=== PATIENT | male | born 1965 | race Caucasian/White ===

== ENCOUNTER 2021-05-19 15:29 | Outpatient (CLI) | payer BC, SELFPAY ==
--- NOTE | ~2021-05-19 | CT_ITS ---
EXAMINATION: CT lung screening DATE: 05/19/2021 15:48 INDICATION: Nicotine dependence. TECHNIQUE: Computed tomography (CT) of the chest was performed without intravenous contrast. The dose -length product was 265.30 mGy-cm. Automated exposure control and iterative reconstruction technique were employed. COMPARISON: Chest x-ray dated 06/18/2005. FINDINGS: Mildly enlarged right paratracheal lymph node. Additional smaller nonenlarged mediastinal l ymph nodes. There is an enlarged AP window lymph node measuring 1.3 cm. No significant pleural or per icardial effusion. Fatty infiltration of the liver. Mild atherosclerosis of the aorta and coronary ar teries. Heart size normal. There is nonsolid consolidation along the minor fissure as well as the lef t major fissure. There is lingular atelectasis/scarring. There are emphysematous changes. IMPRESSION: 1. Lung-RADS category 3: Probably benign. Further evaluation is recommended with noncontrast low-dose chest CT in 6 months. 2: Mild mediastinal lymphadenopathy, likely reactive. Reviewed, dictated and finalized at location A. IMPRESSION: 1. Lung-RADS category 3: Probably benign. Further evaluation is recommended wit h noncontrast low-dose chest CT in 6 months. 2: Mild mediastinal lymphadenopathy, likely reactive.
== END 2021-05-19 15:30 | disposition home or self-care (01) ==
LOC: ANHIMG 15:34
PROVIDERS: PCP Family Medicine; Visit Provider Physician Assistant Medical
DX: Z12.2 Encounter for screening for malignant neoplasm of respiratory organs (principal); F17.210 Nicotine dependence, cigarettes, uncomplicated
CPT/HCPCS: 71271

== ENCOUNTER 2022-05-21 16:37 | Outpatient (CLI) | payer BC, SELFPAY ==
--- NOTE | ~2022-05-21 | CT_ITS ---
EXAMINATION: CT lung screening DATE: 05/21/2022 17:06 INDICATION: Abnormal initial low dose CT TECHNIQUE: Computed tomography (CT) of the chest was performed without intravenous contrast. Addition al 3D reconstructions utilizing coronal maximum intensity projection (MIP) were performed. Automated exposure control and iterative reconstruction technique were employed. The dose-length product was 22 1.25 mGy-cm. COMPARISON: 05/19/2021 FINDINGS: Mild upper lobe and paraseptal predominant emphysema. Unchanged linear bands of discoid atelectasis/s carring in the right middle lobe and the lingula. New 2 mm left lower lobe nodule near the apex of th e diaphragm on series 4, image 106. Unchanged tiny calcified subpleural left lower lobe nodule consis tent with old granulomatous disease. Heart size is normal. Atherosclerotic coronary artery calcificat ion. No pericardial or pleural effusion. Thoracic aorta is normal in caliber. Partially visualized 6. 7 x 4.5 cm right supraclavicular mass. No other pathologically enlarged thoracic lymphadenopathy. Int erval improvement in the prior diffuse hepatic steatosis. There are few scattered hypodense hepatic l esions is likely either hepatic cysts or hemangiomas. The largest measuring up to 1.4 cm. There are a lso low-attenuation cysts at the upper poles of both kidneys, the larger on the right measuring 1.9 c m. No pathologically enlarged lymphadenopathy in the visualized upper abdomen. Mild to moderate thora cic spondylosis. IMPRESSION: 1. Expected 7 x 4.5 cm right supraclavicular mass concerning for either lymphoma or metastatic diseas e. Recommend ultrasound-guided core needle biopsy. Dr. Johnson discussed these findings with Dr. Vadim glez at 10:20 AM. 2. Lung-RADS category 2: Benign appearance or behavior. Continue annual screening with noncontrast lo w-dose chest CT in 12 months. Reviewed, dictated and finalized at location A. IMPRESSION: 1. Expected 7 x 4.5 cm right supraclavicular mass concerning for either lymphom a or metastatic disease. Recommend ultrasound-guided core needle biopsy. Dr. Fr farah discussed these findings with Dr. Gonzalez at 10:20 AM. 2. Lung-RADS category 2: Benign appearance or behavior. Continue annual screeni ng with noncontrast low-dose chest CT in 12 months.
== END 2022-05-21 16:38 | disposition home or self-care (01) ==
LOC: ANHIMG 16:41
PROVIDERS: PCP Emergency Medicine; Visit Provider Emergency Medicine
DX: Z12.2 Encounter for screening for malignant neoplasm of respiratory organs (principal); F17.210 Nicotine dependence, cigarettes, uncomplicated
CPT/HCPCS: 71271

== ENCOUNTER 2022-05-31 12:46 | Outpatient (CLI) | payer BC, SELFPAY ==
--- NOTE | ~2022-05-31 | US_ITS ---
EXAMINATION: US biopsy lymph node DATE: 05/31/2022 13:50 INDICATION: Right cervical lymphadenopathy. TECHNIQUE: The procedure including the risks, benefits, and alternatives was discussed with the patie nt. Risks discussed included bleeding and infection. The patient understood the risks and agreed to p roceed. The skin overlying the right neck was prepped and draped in usual sterile fashion. Anestheti c was administered with 1% lidocaine subcutaneously. The right cervical lymph node is predominantly n ecrotic. An 18-gauge spinal needle was inserted into the necrotic lymph node under ultrasound guidanc e. 80 mL of opaque, red fluid was aspirated and discarded. An 18 gauge core biopsy needle was then us ed to obtain 6 core biopsy specimens under continuous sonographic guidance. The entry site was cleane d and dressed. There were no immediate complications. FINDINGS: Ultrasound images demonstrate the needle in a 6.8 x 3.7 cm mixed solid and cystic mass in r ight neck that is likely an enlarged lymph node. IMPRESSION: 1. Ultrasound-guided core needle biopsy of an enlarged right neck lymph node. Reviewed, dictated and finalized at location A.
== END 2022-05-31 12:47 | disposition home or self-care (01) ==
PROVIDERS: PCP Emergency Medicine; Visit Provider Emergency Medicine
DX: R22.1 Localized swelling, mass and lump, neck (principal)
CPT/HCPCS: 38505; 76942; 88305; 88342

== ENCOUNTER 2022-06-15 15:50 | Outpatient (CLI) | payer BC, SELFPAY ==
--- NOTE | ~2022-06-15 | US_ITS ---
US soft tissue head and neck INDICATION: Thyroid cancer. TECHNIQUE: Real-time sonographic images of the thyroid gland were obtained. COMPARISON: No prior studies for comparison. FINDINGS: The right thyroid lobe measures 5.8 x 2.8 cm. In the right lobe there is a complex heteroge neous solid mass which is hypoechoic, taller than wide, irregular margins without internal echogenic foci. This mass measures 2.2 x 2.1 x 1.7 cm. In the left neck there is a complex partially cystic mas s measuring 7.8 x 7.6 x 3.5 cm with heterogeneous internal echogenic soft tissue. No significant inte rnal vascularity.. IMPRESSION: 1. Abnormal hypoechoic 2.2 cm right thyroid mass, TR 5. Recommend ultrasound guided biopsy. 2: Complex partially cystic right neck mass measuring 7.8 cm greatest dimension. Recommend correlati on with contrast-enhanced CT neck. Reviewed, dictated and finalized at location A. IMPRESSION: 1. Abnormal hypoechoic 2.2 cm right thyroid mass, TR 5. Recommend ultrasound g uided biopsy. 2: Complex partially cystic right neck mass measuring 7.8 cm greatest dimensio n. Recommend correlation with contrast-enhanced CT neck.
== END 2022-06-15 15:51 | disposition home or self-care (01) ==
LOC: ANHIMG 15:52
PROVIDERS: PCP Emergency Medicine; Visit Provider Internal Medicine Hematology & Oncology
DX: C73 Malignant neoplasm of thyroid gland (principal)
CPT/HCPCS: 76536

== ENCOUNTER 2022-08-15 09:19 | Outpatient (CLI) | payer BC, SELFPAY ==
[2022-08-15 09:32] LABS: Basophils Absolute Auto 0.1 K/mm3 (0.0-0.1); Basophils Percent Auto 0.8 % (0.2-1.2); Eosinophils Absolute Auto 0.3 K/mm3 (0-0.3); Hematocrit 37.2 % (42.0-52.0); Hemoglobin 12.1 g/dL (14.0-18.0); Immature Granulocyte Absolute 0.03 K/mm3 (0.00-0.031); Immature Granulocyte Percent A 0.5 % (0-0.5); Lymphocytes Percent Auto 19.4 % (18.3-44.2); Mean Corpuscular HGB Conc 32.5 g/dl (32-36); Mean Corpuscular Hemoglobin 30.9 pg (26-34); Mean Corpuscular Volume 95.1 fl (80-100); Mean Platelet Volume 9.3 fl (7.4-10.4); Monocytes Absolute Auto 0.8 K/mm3 (0.1-0.6); Monocytes Percent Auto 12.8 % (2.6-8.5); Neutrophils Absolute Auto 3.8 K/mm3 (1.3-6.7); Neutrophils Percent Auto 61.5 % (45.5-73.1); Platelet Count Result 177 k/mm3 (150-375); Red Blood Count 3.91 M/mm3 (4.6-6.20); Red Cell Distribution Width 13.6 % (11.5-14.5); White Blood Count 6.2 K/mm3 (4.5-10.0)
[2022-08-15 11:41] LABS: Alanine Aminotransferase 56 U/L (6-50); Albumin Level 4.2 g/dL (3.5-5.1); Alkaline Phosphatase 93 U/L (38-126); Anion Gap 3 mmol/L (8-16); Aspartate Amino Transferase 35 U/L (17-59); Bilirubin,Total 0.3 mg/dL (0.2-1.3); Blood Urea Nitrogen 13 mg/dL (9-20); Calcium 8.7 mg/dL (8.4-10.2); Carbon Dioxide 30 mmol/L (22-30); Chloride 102 mmol/L (98-107); Estimated Glomerular Filt Rate > 60; Glucose 108 mg/dL (65-110); Potassium 4.4 mmol/L (3.4-5.0); Sodium 135 mmol/L (137-145)
[2022-08-18 04:09] LABS: Thyroglobulin 0.4 ng/mL (2.8-40.9); Thyroglobulin Antibodies <1 IU/mL (<=1)
== END 2022-08-15 09:20 | disposition home or self-care (01) ==
LOC: ANHLAB 09:20
PROVIDERS: PCP Emergency Medicine; Visit Provider Internal Medicine Hematology & Oncology
DX: C73 Malignant neoplasm of thyroid gland (principal)
CPT/HCPCS: 36415; 80053; 84432; 84443; 85025; 86800

== ENCOUNTER 2022-09-21 11:48 | Outpatient (CLI) | payer BC, SELFPAY ==
[2022-09-21 18:16] LABS: Thyroid Stimulating Hormone 0.373 uIU/mL (0.465-4.680)
== END 2022-09-21 11:49 | disposition home or self-care (01) ==
LOC: ANHGOSHLAB 11:49
PROVIDERS: PCP Emergency Medicine; Visit Provider Emergency Medicine
DX: E03.9 Hypothyroidism, unspecified (principal)
CPT/HCPCS: 36415; 84439; 84443

== ENCOUNTER 2023-02-01 09:46 | Emergency (ER) | payer BC, SELFPAY ==
[2023-02-01] VITALS (9 sets, daily range): BP systolic 134–167; BP diastolic 88–122; PULSE 66–71; RESP 8–23; TEMP 36.6; O2SAT 93–98
--- NOTE | ~2023-02-01 | XR_ITS ---
XR chest 2V 02/01/2023 10:20 Indication: Shortness of breath Procedure: 2 view chest Comparison: 06/18/2005 Findings: Heart size normal. There are discoid infiltrates of the right lower lung, most likely atele ctasis/scarring. No pleural effusion or pneumothorax. No acute osseous abnormality. Impression: 1: Discoid infiltrates of the right lower lung, most likely atelectasis or scarring. Reviewed, dictated and finalized at location B. Impression: 1: Discoid infiltrates of the right lower lung, most likely atelectasis or scar ring.
--- NOTE | 2023-02-01 09:56 | ECG_ITS ---
Measurements Intervals [place] Rate: 61 P: 55 AR: 198 QRS: 57 QRSD: 94 T: 59 QT: 389 QTc: 392 Interpretive Statements SINUS RHYTHM BASELINE ARTIFACT- I, II, AVR NORMAL ECG NO PREVIOUS ECG AVAILABLE FOR COMPARISON Electronically Signed On 02-01-2023 12:28:28 CDT by Lemuel Ibanez D.O.
[2023-02-01 10:50] LABS: Basophils Absolute Auto 0.1 K/mm3 (0.0-0.1); Basophils Percent Auto 1.2 % (0.2-1.2); Eosinophils Absolute Auto 0.2 K/mm3 (0-0.3); Hematocrit 48.2 % (42.0-52.0); Hemoglobin 14.8 g/dL (14.0-18.0); Immature Granulocyte Absolute 0.02 K/mm3 (0.00-0.031); Immature Granulocyte Percent A 0.3 % (0-0.5); Lymphocytes Percent Auto 16.1 % (18.3-44.2); Mean Corpuscular HGB Conc 30.7 g/dl (32-36); Mean Corpuscular Hemoglobin 27.8 pg (26-34); Mean Corpuscular Volume 90.4 fl (80-100); Monocytes Absolute Auto 0.7 K/mm3 (0.1-0.6); Monocytes Percent Auto 9.2 % (2.6-8.5); Neutrophils Absolute Auto 5.3 K/mm3 (1.3-6.7); Neutrophils Percent Auto 71.2 % (45.5-73.1); Platelet Count Result 167 k/mm3 (150-375); Red Blood Count 5.33 M/mm3 (4.6-6.20); Red Cell Distribution Width 14.8 % (11.5-14.5); White Blood Count 7.5 K/mm3 (4.5-10.0)
[2023-02-01 11:06] LABS: Alanine Aminotransferase 27 U/L (6-50); Albumin Level 4.4 g/dL (3.5-5.1); Alkaline Phosphatase 117 U/L (38-126); Anion Gap 4 mmol/L (8-16); Aspartate Amino Transferase 32 U/L (17-59); Bilirubin,Total 0.6 mg/dL (0.2-1.3); Blood Urea Nitrogen 9 mg/dL (9-20); Calcium 8.8 mg/dL (8.4-10.2); Carbon Dioxide 31 mmol/L (22-30); Chloride 102 mmol/L (98-107); Estimated CRCL calculation 91 ml/min; Estimated Glomerular Filt Rate > 60; Glucose 106 mg/dL (65-110); Potassium 4.7 mmol/L (3.4-5.0); Sodium 137 mmol/L (137-145)
[2023-02-01 11:17] LABS: NT Pro B Type Natriuretic Pept 68 pg/mL (19.9-100); Troponin I < 0.012 ng/mL (0.000-0.034)
--- NOTE | 2023-02-01 11:17 | PC.NURSE ---
Pt ambulates into room c/o low SPO2 levels at his PCP's today. Pt states he has felt SOB off and on since Jul after having his thyroid removed. Pt states he feels like his levothyroxine dose is off. Pt denies feeling SOB at this moment. PT's SPO2 on room air is 94 at this time. Denies any pain at this time. States on the 18 of July two days after having his thyroid removed he had a PE and NV here at this facility.
--- NOTE | 2023-02-01 13:25 | ED.GENADULT ---
HPI - General Adult General Chief complaint: Recheck/Abnormal Lab/Rx Stated complaint: sob Time Seen by Provider: 02/01/23 11:17 History of Present Illness HPI narrative: Patient is a 57-year-old male who presents ER due to concern for low O2 saturation study. Patient reports he was at his primary care doctor's office for his annual exam. He performed a walking O2 study where his pulse oximeter reading was at 92% so he was referred to the ER. He has no chest pain or chest pressure. He has no symptoms of dyspnea. No runny nose or sore throat or productive cough. He does have history of tobacco abuse. Related Data Home Medications Medication Instructions Recorded Confirmed albuterol sulfate 90 mcg/actuation 1 puff inhalation Q6-8H 08/24/22 02/01/23 aerosol inhaler atorvastatin 40 mg tablet 40 mg PO DAILY 08/24/22 02/01/23 ibuprofen 400 mg tablet 800 mg PO Q6-8H 08/24/22 02/01/23 rivaroxaban 10 mg tablet (Xarelto) 10 mg PO DAILY 08/24/22 02/01/23 Allergies Allergy/AdvReac Type Severity Reaction Status Date / Time iodine Allergy Unknown hives Verified 02/01/23 11:21 Contrast Media Allergy Unknown SEVERE Uncoded 02/01/23 08:38 HIVES, ITCHING Review of Systems Review of Systems: All systems reviewed & are unremarkable except as noted in HPI and below Constitutional: Constitutional: Denies chills, Denies fatigue and Denies fever(s) ENT: Denies nasal congestion and Denies sore throat Cardiovascular: Cardiovascular: Denies chest pain, Denies rapid heart rate and Denies radiating jaw, neck or arm pain Respiratory: Respiratory: Denies cough, Denies dyspnea and Denies wheezing [facility] Past Medical History Medical History Acquired hypothyroidism S/p thyrodectomy in July 2022 Adjustment disorder with depressed mood Essential (primary) hypertension History of DVT (deep vein thrombosis) History of pulmonary embolism Lipoprotein deficiency Mixed hyperlipidemia Papillary thyroid carcinoma Personal history of tobacco use Surgical History Surgical History History of laryngoscopy 06/30 [facility] Family History Family History Mother Diabetes mellitus Hypertension Lung cancer Father Hypertension Grandparent Diabetes mellitus Grandparent Diabetes mellitus Hypertension Social History Social History Social History: Caffeine-soda Smoking packs per day: 2 Smoking cigarettes per day: 40.0 Years smoked: 44 Smoking pack-years: 88.00 Smoking status: Former smoker Alcohol intake: current Drinks per week: 30 Alcohol use details: Beer Substance use type: does not use Lack of Transportation: No Lack of Food: Never True Current Housing: I Have Housing Concerned About Future Housing: No Difficulty Paying Gas/Electric Bills: No Difficulty Paying for Meds: No Currently Unemployed: No Education: Trade/Vocational Certificate Difficulty w/ Childcare or Family Care: No Occupation/Education: occupation Gender identity (if verbalized by the patient): Male Exam Narrative: GENERAL: Well-appearing, well-nourished, and in no acute distress. HEAD: Normocephalic, atraumatic. ENT: Mucous membranes moist. NECK: Supple. CHEST: Clear to auscultation. No respiratory distress. HEART: Regular rate and rhythm. Normal peripheral pulses. ABDOMEN: Soft, nontender, nondistended. EXTREMITIES: Normal range of motion. +2No edema. SKIN: Warm, dry, no rash. NEURO: Alert and oriented x3. PSYCH: Normal mood and affect. Course Course Emergency Course: Patient resting comfortably. No complaints. Patient ambulatory with pulse oximeter reading no lower than 92% on room air. Patient is free of symptoms when walking. Discharge home. Vital Signs Vital signs: Vital Signs Temperature 97.8 F 02/01/23 09:4
== END 2023-02-01 13:38 | disposition home or self-care (01) ==
PROVIDERS: Emergency Provider Emergency Medicine; PCP Emergency Medicine
DX: Z03.89 Encounter for observation for other suspected diseases and conditions ruled out (principal); I10 Essential (primary) hypertension; E78.2 Mixed hyperlipidemia; E89.0 Postprocedural hypothyroidism; Z86.718 Personal history of other venous thrombosis and embolism; Z86.711 Personal history of pulmonary embolism; Z85.850 Personal history of malignant neoplasm of thyroid; Z87.891 Personal history of nicotine dependence; Z79.01 Long term (current) use of anticoagulants
CPT/HCPCS: 36415; 71046; 80053; 83880; 84484; 85025; 93005; 99284

== ENCOUNTER 2023-02-08 10:21 | Outpatient (CLI) | payer BC, SELFPAY ==
[2023-02-08 18:34] LABS: D Dimer 0.93 ug/mL (<0.48)
[2023-02-08 18:59] LABS: Thyroid Stimulating Hormone 0.074 uIU/mL (0.465-4.680)
== END 2023-02-08 10:22 | disposition home or self-care (01) ==
PROVIDERS: PCP Emergency Medicine; Visit Provider Nurse Practitioner Family
DX: C73 Malignant neoplasm of thyroid gland (principal); E03.9 Hypothyroidism, unspecified; Z86.711 Personal history of pulmonary embolism; Z86.718 Personal history of other venous thrombosis and embolism
CPT/HCPCS: 36415; 84443; 85380

== ENCOUNTER 2023-11-26 03:15 | Emergency (ER) | payer BC, SELFPAY ==
--- NOTE | ~2023-11-26 | XR_ITS ---
Right Knee Technique: AP, lateral, and oblique views were obtained. Clinical History: Pain Findings: No fracture or dislocation is seen. Osseous alignment is anatomic. Joint spaces are preserv ed without degenerative or erosive change. Soft tissues are unremarkable. No joint effusion is seen. Impression: Unremarkable right knee radiographs. Reviewed, dictated and finalized at location . Impression: Unremarkable right knee radiographs.
[2023-11-26 03:17] VITALS: BP 139/68; PULSE 80; RESP 16; TEMP 36.7; O2SAT 96
--- NOTE | 2023-11-26 03:45 | ED.GENADULT ---
HPI - General Adult General Chief complaint: Extremity Problem,Nontraumatic Stated complaint: right leg tender and swollen Time Seen by Provider: 11/26/23 03:32 History of Present Illness HPI narrative: Patient 58-year-old gentleman who presents emergency department with chief complaint of possible DVT the right lower extremity. The patient reports that he has prior history of clots is on an anticoagulant but had some issues with getting his medications and has been off of it for the last week. The patient reports that he started having swelling what appeared to be a large vein present around his low right knee. Patient reports no chest pain denies shortness of breath. Related Data Home Medications Medication Instructions Recorded Confirmed albuterol sulfate 90 mcg/actuation 1 puff inhalation Q6-8H 08/24/22 02/08/23 aerosol inhaler atorvastatin 40 mg tablet 40 mg PO DAILY 08/24/22 02/08/23 Allergies Allergy/AdvReac Type Severity Reaction Status Date / Time iodine Allergy Unknown hives Verified 02/08/23 09:27 Contrast Media Allergy Unknown SEVERE Uncoded 02/08/23 09:27 HIVES, ITCHING Review of Systems Review of Systems: A 10 system review of systems was completed on the patient and is negative except for what is stated in the HPI. Nursing and ancillary documentation was reviewed. [facility] Past Medical History Medical History Acquired hypothyroidism S/p thyrodectomy in July 2022 Adjustment disorder with depressed mood Essential (primary) hypertension History of DVT (deep vein thrombosis) History of pulmonary embolism Lipoprotein deficiency Mixed hyperlipidemia Papillary thyroid carcinoma Personal history of tobacco use Surgical History Surgical History History of laryngoscopy 06/30 [facility] Family History Family History Mother Diabetes mellitus Hypertension Lung cancer Father Hypertension Grandparent Diabetes mellitus Grandparent Diabetes mellitus Hypertension Social History Social History Social History: Caffeine-soda Smoking packs per day: 2 Smoking cigarettes per day: 40.0 Years smoked: 44 Smoking pack-years: 88.00 Smoking status: Former smoker Alcohol intake: current Drinks per week: 30 Alcohol use details: Beer Substance use type: does not use Lack of Transportation: No Lack of Food: Never True Current Housing: I Have Housing Concerned About Future Housing: No Difficulty Paying Gas/Electric Bills: No Difficulty Paying for Meds: No Currently Unemployed: No Education: Trade/Vocational Certificate Difficulty w/ Childcare or Family Care: No Occupation/Education: occupation Gender identity (if verbalized by the patient): Male Exam Narrative: GENERAL: Well-appearing, well-nourished, and in no acute distress. HEAD: Normocephalic, atraumatic. EYES: PERRLA and EOMI. ENT: Nares clear, no rhinorrhea or epistaxis. Mucous membranes moist. NECK: Supple. CHEST: Clear to auscultation. No respiratory distress. HEART: Regular rate and rhythm. No murmur heard. Normal peripheral pulses. ABDOMEN: Soft, nontender, nondistended, normal active bowel sounds. EXTREMITIES: Normal range of motion. No edema. There is tenderness present on the left medial aspect of the right knee SKIN: Warm, dry, no rash. NEURO: No focal deficits. Alert and oriented x3. PSYCH: Normal mood and affect. Course Vital Signs Vital signs: Vital Signs Temperature 36.7 C 11/26/23 03:17 Pulse Rate 80 11/26/23 03:17 Respiratory Rate 16 11/26/23 03:17 Blood Pressure 139/68 11/26/23 03:17 Pulse Oximetry 96 11/26/23 03:17 Oxygen Delivery Room Air 11/26/23 03:17 Temperature 36.7 C 11/26/23 03:17 Pulse Rate 80 11/26/23 03:17 Respiratory Rat
[2023-11-26 04:17] LABS: Basophils Absolute Auto 0.1 K/mm3 (0.0-0.1); Basophils Percent Auto 1.3 % (0.2-1.2); Eosinophils Absolute Auto 0.2 K/mm3 (0-0.3); Eosinophils Percent Auto 2.5 % (0-4.4); Hemoglobin 12.5 g/dL (14.0-18.0); Immature Granulocyte Absolute 0.02 K/mm3 (0.00-0.031); Immature Granulocyte Percent A 0.2 % (0-0.5); Lymphocytes Absolute Auto 1.25 K/mm3 (0.9-3.2); Lymphocytes Percent Auto 15.3 % (18.3-44.2); Mean Corpuscular HGB Conc 30.5 g/dl (32-36); Mean Corpuscular Hemoglobin 27.5 pg (26-34); Mean Corpuscular Volume 90.1 fl (80-100); Mean Platelet Volume 10.6 fl (7.4-10.4); Monocytes Absolute Auto 1.1 K/mm3 (0.1-0.6); Monocytes Percent Auto 13.6 % (2.6-8.5); Neutrophils Absolute Auto 5.5 K/mm3 (1.3-6.7); Neutrophils Percent Auto 67.1 % (45.5-73.1); Platelet Count Result 199 k/mm3 (150-375); Red Blood Count 4.55 M/mm3 (4.6-6.20); Red Cell Distribution Width 14.4 % (11.5-14.5); White Blood Count 8.2 K/mm3 (4.5-10.0)
[2023-11-26 04:25] LABS: Anion Gap 5 mmol/L (8-16); Blood Urea Nitrogen 17 mg/dL (9-20); Calcium 8.8 mg/dL (8.4-10.2); Carbon Dioxide 27 mmol/L (22-30); Chloride 108 mmol/L (98-107); Estimated CRCL calculation 82 ml/min; Estimated Glomerular Filt Rate > 60; Glucose 120 mg/dL (65-110); Potassium 4.4 mmol/L (3.4-5.0); Sodium 140 mmol/L (137-145)
[2023-11-26 04:37] LABS: Prothrombin Time 13.7 Seconds (11.1-14.7)
[2023-11-26 04:38] LABS: Partial Thromboplastin Time 28.5 Seconds (22.3-36.8)
[2023-11-26] MEDS: ENOXAPARIN 100 MG/ML SYRINGE SUB-Q (04:40)
[2023-11-26 04:47] VITALS: BP 148/82; PULSE 91; RESP 16; O2SAT 97
== END 2023-11-26 04:47 | disposition home or self-care (01) ==
PROVIDERS: Emergency Provider Emergency Medicine; PCP Emergency Medicine
DX: M79.604 Pain in right leg (principal); T45.516A Underdosing of anticoagulants, initial encounter; Z91.138 Patient's unintentional underdosing of medication regimen for other reason; I10 Essential (primary) hypertension; E89.0 Postprocedural hypothyroidism; E78.2 Mixed hyperlipidemia; E78.6 Lipoprotein deficiency; Z85.850 Personal history of malignant neoplasm of thyroid; Z86.718 Personal history of other venous thrombosis and embolism; Z86.711 Personal history of pulmonary embolism; Z87.891 Personal history of nicotine dependence
CPT/HCPCS: 36415; 73562; 80048; 85025; 85610; 85730; 93971; 96372; 99283; J1650

== ENCOUNTER 2023-11-26 07:19 | Outpatient (CLI) | payer BC, SELFPAY ==
--- NOTE | ~2023-11-26 | US_ITS ---
EXAMINATION: US venous doppler LE RT DATE: 11/26/2023 08:24 INDICATION: Right lower limb pain TECHNIQUE: Grayscale ultrasound images without and with compression and Doppler ultrasound images of the right lower extremity veins were obtained. COMPARISON: None. FINDINGS: There is nonocclusive thrombus within the partially compressible right popliteal vein. The visualized portions of right common femoral vein, profunda (deep) femoral vein, femoral vein, posterior tibial veins, peroneal veins, gastrocnemius vein and greater saphenous vein outflow are patent. There is a n oncompressible thrombosed superficial varicose vein at the medial right knee. Per notation of the son nikapher the varicose vein arises from the greater saphenous vein real-time imaging which is not prov ided. IMPRESSION: 1. Nonocclusive deep venous necrosis at the right popliteal vein. 2. Thrombosed superficial varicose vein at the medial right knee. Reviewed, dictated and finalized at location A.
== END 2023-11-26 07:20 | disposition home or self-care (01) ==
PROVIDERS: PCP Emergency Medicine; Visit Provider Emergency Medicine
DX: M79.89 Other specified soft tissue disorders (principal); I86.8 Varicose veins of other specified sites
CPT/HCPCS: 93971

== ENCOUNTER 2023-11-26 09:29 | Emergency (ER) | payer BC, SELFPAY ==
[2023-11-26 12:01] VITALS: BP 136/80; PULSE 71; RESP 16; TEMP 36.8; O2SAT 98
--- NOTE | 2023-11-26 12:06 | ED.EXTPRO ---
HPI - Extremity Problem General Chief complaint: Extremity Problem,Nontraumatic Stated complaint: DVT R LEG Time Seen by Provider: 11/26/23 11:28 Source: patient and old records reviewed Mode of arrival: ambulatory Limitations: no limitations History of Present Illness HPI Narrative: Letha is a 58-year-old male who presents the ED with report of DVT in his right lower extremity. Patient reports a hx of previous DVT in LLE/PE after thyroid surgery last year. He has been on Xarelto since then, but states had an issue with the pharmacy and had been off of his xarelto for the past 1 week. He began discomfort in his right medial knee last night. He was seen in the ED last night and scheduled for outpatient venous Doppler ultrasound this morning, which was positive for a nonocclusive DVT in his right popliteal vein. He then prompted to the ED. Patient denies numbness or tingling. Denies any recent surgery or long distance travel. Denies chest pain or shortness of breath. Denies palpitations. Related Data Home Medications Medication Instructions Recorded Confirmed albuterol sulfate 90 mcg/actuation 1 puff inhalation Q6-8H 08/24/22 02/08/23 aerosol inhaler atorvastatin 40 mg tablet 40 mg PO DAILY 08/24/22 02/08/23 Allergies Allergy/AdvReac Type Severity Reaction Status Date / Time iodine Allergy Unknown hives Verified 11/26/23 11:55 Contrast Media Allergy Unknown SEVERE Uncoded 02/08/23 09:27 HIVES, ITCHING Review of Systems Review of Systems: CONSTITUTIONAL: Denies fever, chills, or sweats. CARDIOVASCULAR: Denies chest pain, palpitations, or edema. RESPIRATORY: Denies cough or dyspnea. GASTROINTESTINAL: Denies abdominal pain, nausea, vomiting. MUSCULOSKELETAL: see HPI. NEUROLOGIC: Denies headache, dizziness, numbness, or weakness. All systems reviewed & are unremarkable except as noted in HPI and below PMFSH Past Medical History Medical History Acquired hypothyroidism S/p thyrodectomy in July 2022 Adjustment disorder with depressed mood Essential (primary) hypertension History of DVT (deep vein thrombosis) History of pulmonary embolism Lipoprotein deficiency Mixed hyperlipidemia Papillary thyroid carcinoma Personal history of tobacco use Surgical History Surgical History History of laryngoscopy 06/30 [facility] Family History Family History Mother Diabetes mellitus Hypertension Lung cancer Father Hypertension Grandparent Diabetes mellitus Grandparent Diabetes mellitus Hypertension Social History Social History Social History: Caffeine-soda Smoking packs per day: 2 Smoking cigarettes per day: 40.0 Years smoked: 44 Smoking pack-years: 88.00 Smoking status: Former smoker Alcohol intake: current Drinks per week: 30 Alcohol use details: Beer Substance use type: does not use Lack of Transportation: No Lack of Food: Never True Current Housing: I Have Housing Concerned About Future Housing: No Difficulty Paying Gas/Electric Bills: No Difficulty Paying for Meds: No Currently Unemployed: No Education: Trade/Vocational Certificate Difficulty w/ Childcare or Family Care: No Occupation/Education: occupation Gender identity (if verbalized by the patient): Male Exam Narrative: GENERAL: Appears older than stated age, obese with BMI of 30.9, non-toxic, in no acute distress. HEAD: Normocephalic, atraumatic. RESPIRATORY: Airway patent, respirations nonlabored. Clear to auscultation bilaterally, no rales, rhonchi, wheezing. No focal lung sounds. CARDIOVASCULAR: Regular rate and rhythm without murmurs, rubs, or gallops. Pedal pulses easily palpable MUSCULOSKELETAL: Moves all extremities. No gross deformities. Mildly tortuous varicose vein to right distal thigh /m
[2023-11-26 13:03] VITALS: BP 142/86; PULSE 92; RESP 16; O2SAT 98
== END 2023-11-26 13:04 | disposition home or self-care (01) ==
PROVIDERS: Emergency Provider Physician Assistant; PCP Emergency Medicine
DX: I82.431 Acute embolism and thrombosis of right popliteal vein (principal); T45.516A Underdosing of anticoagulants, initial encounter; Z91.138 Patient's unintentional underdosing of medication regimen for other reason; E89.0 Postprocedural hypothyroidism; I10 Essential (primary) hypertension; E78.2 Mixed hyperlipidemia; Z85.850 Personal history of malignant neoplasm of thyroid; Z86.711 Personal history of pulmonary embolism; Z87.891 Personal history of nicotine dependence; Z79.01 Long term (current) use of anticoagulants
CPT/HCPCS: 99281

== ENCOUNTER 2024-02-07 10:02 | Outpatient (CLI) | payer BC, SELFPAY ==
[2024-02-07 15:55] LABS: Cholesterol 157 mg/dL (0-200); HDL Direct 37 mg/dL; Triglycerides 81 mg/dL (<150)
[2024-02-07 16:31] LABS: Hemoglobin A1C 5.8 % (<5.7)
[2024-02-07 16:57] LABS: Free T4 Free Thyroxine 1.33 ng/mL (0.78-2.19)
[2024-02-07 17:19] LABS: LDL Cholesterol Direct 106 mg/dL
[2024-02-07 17:38] LABS: Prostate Specific Antigen 1.5 ng/mL (< OR = 4.0)
== END 2024-02-07 10:03 | disposition home or self-care (01) ==
LOC: ANHGOSHLAB 10:03
PROVIDERS: PCP Emergency Medicine; Visit Provider Emergency Medicine
DX: Z12.5 Encounter for screening for malignant neoplasm of prostate (principal); E03.9 Hypothyroidism, unspecified; E78.2 Mixed hyperlipidemia
CPT/HCPCS: 36415; 80061; 83036; 84153; 84439; 84443; 84480; G0103

== ENCOUNTER 2024-05-27 11:53 | Outpatient (CLI) | payer BC, SELFPAY ==
[2024-05-27 18:49] LABS: Basophils Absolute Auto 0.1 K/mm3 (0.0-0.1); Basophils Percent Auto 1.3 % (0.2-1.2); Eosinophils Absolute Auto 0.2 K/mm3 (0-0.3); Eosinophils Percent Auto 2.8 % (0-4.4); Hematocrit 40.9 % (42.0-52.0); Hemoglobin 11.8 g/dL (14.0-18.0); Immature Granulocyte Absolute 0.03 K/mm3 (0.00-0.031); Immature Granulocyte Percent A 0.4 % (0-0.5); Lymphocytes Percent Auto 15.5 % (18.3-44.2); Mean Corpuscular HGB Conc 28.9 g/dl (32-36); Mean Corpuscular Hemoglobin 24.8 pg (26-34); Mean Corpuscular Volume 85.9 fl (80-100); Mean Platelet Volume 10.7 fl (7.4-10.4); Monocytes Absolute Auto 0.8 K/mm3 (0.1-0.6); Monocytes Percent Auto 10.7 % (2.6-8.5); Neutrophils Absolute Auto 5.4 K/mm3 (1.3-6.7); Neutrophils Percent Auto 69.3 % (45.5-73.1); Platelet Count Result 231 k/mm3 (150-375); Red Blood Count 4.76 M/mm3 (4.6-6.20); Red Cell Distribution Width 15.4 % (11.5-14.5); White Blood Count 7.7 K/mm3 (4.5-10.0)
[2024-05-27 19:21] LABS: Burr Cells 1+; Ovalocytes 1+; Platelet Estimate Adequate (Adequate); Poikilocytosis 1+; Schistocytes None Seen
[2024-05-27 19:42] LABS: Free T4 Free Thyroxine 1.93 ng/mL (0.78-2.19)
[2024-05-27 19:48] LABS: Alanine Aminotransferase 31 U/L (6-50); Albumin Level 4.1 g/dL (3.5-5.1); Alkaline Phosphatase 93 U/L (38-126); Anion Gap 6 mmol/L (4-12); Aspartate Amino Transferase 46 U/L (17-59); Bilirubin,Total 0.5 mg/dL (0.2-1.3); Blood Urea Nitrogen 23 mg/dL (9-20); Calcium 8.9 mg/dL (8.4-10.2); Carbon Dioxide 28 mmol/L (22-30); Chloride 94 mmol/L (98-107); Cholesterol 127 mg/dL (0-200); Estimated Glomerular Filt Rate 41; Glucose 83 mg/dL (65-110); HDL Direct 30 mg/dL; Sodium 128 mmol/L (137-145); Triglycerides 115 mg/dL (<150)
[2024-05-27 19:56] LABS: LDL Cholesterol Direct 68 mg/dL
[2024-05-27 20:15] LABS: Thyroid Stimulating Hormone 0.108 uIU/mL (0.465-4.680); Total Triiodothyronine (T3) 0.98 NG/ML (0.97-1.69)
== END 2024-05-27 11:54 | disposition home or self-care (01) ==
PROVIDERS: PCP Emergency Medicine; Visit Provider Emergency Medicine
DX: E78.2 Mixed hyperlipidemia (principal); R06.02 Shortness of breath; R42 Dizziness and giddiness; E03.9 Hypothyroidism, unspecified
CPT/HCPCS: 36415; 80053; 80061; 84439; 84443; 84480; 85025

== ENCOUNTER 2024-05-28 10:41 | Outpatient (CLI) | payer BC, SELFPAY ==
--- NOTE | ~2024-05-28 | CT_ITS ---
Non-contrast Head CT History: Head injury Technique: Axial non-contrast imaging of the brain was performed. Dose reduction technique was used on this scan by utilizing automated exposure control and iterative reconstruction technique. The dose -length product (DLP) was 645.69 mGy-cm. Findings: There is no evidence of intracranial hemorrhage, mass lesion, or acute infarct. Brain par enchyma appears normal. The ventricles and subarachnoid spaces are normal in size. The calvarium ap pears normal. The visualized paranasal sinuses and mastoid air cells are clear. Impression: No significant abnormality seen. Reviewed, dictated and finalized at location . Impression: No significant abnormality seen.
--- NOTE | ~2024-05-28 | CT_ITS ---
CT Scan of the Chest without Contrast: Clinical Indication: Shortness of breath Technique: Contiguous sections were acquired throughout the chest without intravenous contrast. Dose reduction technique was used on this scan by utilizing automated exposure control and iterative recon struction technique. The dose-length product (DLP) was 473.32 mGy-cm. COMPARISON: 05/21/2022 Findings: There is no evidence of any significant mediastinal, hilar or axillary lymphadenopathy. Coronary eliel ry calcifications are present. There is no evidence of pleural or pericardial effusion. Upper lobe predominant paraseptal emphysema is present. Stable irregular opacity at the peripheral, r ight middle lobe, suggestive of chronic postinflammatory scarring. Images through the upper abdomen reveal no abnormalities. Impression: No suspicious abnormality seen. Stable irregular opacity right middle lobe, likely chronic postinflam matory change or scarring. Upper lobe emphysema, predominantly paraseptal. Reviewed, dictated and finalized at [facility]. Impression: No suspicious abnormality seen. Stable irregular opacity right middle lobe, lik madonna chronic postinflammatory change or scarring. Upper lobe emphysema, predominantly paraseptal.
== END 2024-05-28 10:42 | disposition home or self-care (01) ==
LOC: GOSHIMG 10:41
PROVIDERS: PCP Emergency Medicine; Visit Provider Emergency Medicine
DX: R06.02 Shortness of breath (principal); S09.8XXA Other specified injuries of head, initial encounter; X58.XXXA Exposure to other specified factors, initial encounter; J43.9 Emphysema, unspecified
CPT/HCPCS: 70450; 71250

== ENCOUNTER 2024-06-26 11:06 | Outpatient (CLI) | payer BC, SELFPAY ==
[2024-06-26 18:11] LABS: Albumin Level 3.9 g/dL (3.5-5.1); Anion Gap 8 mmol/L (4-12); Blood Urea Nitrogen 16 mg/dL (9-20); Calcium 8.7 mg/dL (8.4-10.2); Carbon Dioxide 28 mmol/L (22-30); Chloride 100 mmol/L (98-107); Estimated Glomerular Filt Rate > 60; Glucose 154 mg/dL (65-110); Phosphorus 2.8 mg/dL (2.5-4.5); Potassium 4.4 mmol/L (3.4-5.0); Sodium 136 mmol/L (137-145)
== END 2024-06-26 11:07 | disposition home or self-care (01) ==
LOC: ANHGOSHLAB 11:08
PROVIDERS: PCP Emergency Medicine; Visit Provider Internal Medicine Nephrology
DX: E87.1 Hypo-osmolality and hyponatremia (principal); N17.9 Acute kidney failure, unspecified
CPT/HCPCS: 36415; 80069

== ENCOUNTER 2024-09-17 13:37 | Outpatient (CLI) | payer BC, SELFPAY ==
[2024-09-17 20:47] LABS: Albumin Level 3.9 g/dL (3.5-5.1); Anion Gap 4 mmol/L (4-12); Blood Urea Nitrogen 16 mg/dL (9-20); Calcium 8.7 mg/dL (8.4-10.2); Carbon Dioxide 29 mmol/L (22-30); Chloride 101 mmol/L (98-107); Estimated Glomerular Filt Rate > 60; Glucose 87 mg/dL (65-110); Phosphorus 2.9 mg/dL (2.5-4.5); Potassium 4.6 mmol/L (3.4-5.0); Sodium 134 mmol/L (137-145)
== END 2024-09-17 13:38 | disposition home or self-care (01) ==
LOC: ANHGOSHLAB 13:39
PROVIDERS: PCP Emergency Medicine; Visit Provider Internal Medicine Nephrology
DX: E87.1 Hypo-osmolality and hyponatremia (principal); N17.9 Acute kidney failure, unspecified
CPT/HCPCS: 36415; 80069

== ENCOUNTER 2024-12-22 09:20 | Outpatient (CLI) | payer BC, SELFPAY ==
--- NOTE | 2024-12-22 09:30 | EST_ITS ---
Patient Info Name: Benton Trimble Age: 59 years : 1965 Gender: Male Ht: 73 in Wt: 250 lbs BSA: 2.45 m2 Exam Date: 12/22/2024 9:53 AM Exam Location: Echo Lab Patient Status: Outpatient Admit Date: 12/22/2024 Staff Ordering Physician: Marizol Dejesus-Jordan Cash Control Specialist: Grecia Rodriguez RDCS Attending Provider: DR. IBANEZ Referring Physician: Oleg BRAGG; Exercise Technologist: Melinda Bryant RDCS Exercise Physician: Lemuel Ibanez DO Exam Type: CA stress echo Study Info Indications R42 - Dizziness and giddiness Treadmill exercise stress echocardiogram is performed. Summary 1. 1. Negative Baudilio exercise stress test for ischemic ST changes by ECG criteria. However, patient only achieved 73% MPHR for age group which reduces sensitivity of the test. 2. 2. Poor functional capacity, achieving 4.7 METs of workload. 3. 3. Appropriate HR response to exercise. 4. 4. Appropriate HR recovery at 1 minute post exercise. 5. 5. Negative stress echocardiogram for ischemia by wall motion analysis. 6. 6. Patient informed of the above results. Stress Echo Findings Left Ventricle Appropriate increase in LV endocardial thickening with systole. Appropriate augmentation of contractility with systole. No wall motion abnormality. Left Ventricle Normal LV systolic function, no wall motion abnormality. Protocol: Baudilio Stress ECG Details Stage: REST Duration (min): 0 min : 47 sec Speed (mph): 0.0 Grade (%): 0 HR (bpm): 70 SBP (mmHg): 110 DBP (mmHg): 55 METS: --- Stage: REST Duration (min): 27 min : 26 sec Speed (mph): 0.0 Grade (%): 0 HR (bpm): 76 SBP (mmHg): 110 DBP (mmHg): 55 METS: --- Stage: STAGE 1 Duration (min): 1 min : 0 sec Speed (mph): 1.7 Grade (%): 10 HR (bpm): 99 SBP (mmHg): 110 DBP (mmHg): 55 METS: --- Stage: STAGE 1 Duration (min): 2 min : 0 sec Speed (mph): 1.7 Grade (%): 10 HR (bpm): 110 SBP (mmHg): 110 DBP (mmHg): 55 METS: --- Stage: STAGE 1 Duration (min): 3 min : 0 sec Speed (mph): 1.7 Grade (%): 10 HR (bpm): 115 SBP (mmHg): 121 DBP (mmHg): 54 METS: --- Stage: STAGE 2 Duration (min): 0 min : 5 sec Speed (mph): 0.0 Grade (%): 0 HR (bpm): 116 SBP (mmHg): 121 DBP (mmHg): 54 METS: --- Stage: RECOVERY Duration (min): 0 min : 55 sec Speed (mph): 0.0 Grade (%): 0 HR (bpm): 110 SBP (mmHg): 121 DBP (mmHg): 54 METS: --- Stage: RECOVERY Duration (min): 1 min : 55 sec Speed (mph): 0.0 Grade (%): 0 HR (bpm): 107 SBP (mmHg): 149 DBP (mmHg): 38 METS: --- Stage: RECOVERY Duration (min): 2 min : 55 sec Speed (mph): 0.0 Grade (%): 0 HR (bpm): 96 SBP (mmHg): 149 DBP (mmHg): 38 METS: --- Stage: RECOVERY Duration (min): 3 min : 16 sec Speed (mph): 0.0 Grade (%): 0 HR (bpm): 95 SBP (mmHg): 149 DBP (mmHg): 38 METS: --- Rest HR: 76 bpm Peak HR: 116 bpm Rest Sys BP: 110 mmHg Peak Sys BP: 149 mmHg Max Pred HR: 160 bpm % Max Pred HR: 73 % Target HR: 136 bpm Max RPP: 17,284 bpm*mmHg Claudio Score: -1 Termination Reason: Maximal effort/unable to continue Cardiac Symptoms: Shortness of breath Max ST Seg Deviation: -0.80 mm Total Time: 3 min : 5 sec Rest [place] BP: 55 mmHg Peak [place] BP: 38 mmHg Angina Score: None Total METS: 4.7 Resting ECG Sinus rhythm. Stress ECG No ST changes. Arrhythmias None. Report Signatures Stress ECG Echo
--- OUTSIDE RECORDS SUMMARY | 2024-12-22 09:51 | XMS_ITS | Clinical Summary ---
Author Organization [facility] [employer] Address [address] [facility] [place] [address] Care Team Providers Care Water Treatment Plant Operator Name Role Phone Robert Gonzalez Primary Care Provider Unavailabl e Source Comments [facility],non-owned Affiliates and Associated Physician Practices is amultiple site organization consisting of ambulatory clinics and hospital sitesin [place], [place], [place] and [place]. This disclosure is being madepursuant to the Care Everywhere program and may not contain all information available regarding this patient. Last updated 18.[facility] [employer] Allergies Active Allergy Reactions Criticality Noted Date Comments Iodine Urticaria,Unknown High 06/14/2022 Reaction: Hives, I had to have blood removed after contrast when I was 4 Contrast-Iodinated Agents For Ct/Other Urticaria High 06/29/2024 Medications * Be aware that medications may not be up to date on this document. Alwaysverify current medications with the patient. 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 60 tablet 2021 Active Additional Information Patient taking differently: 10 mgOral DAILY WITH FOOD, CP: Albert Biswas III, Indications: Pulmonary Embolism, Reported on 04/02/2023 levothyroxine (Synthroid) 175 MCG tabletIndications:Hypo thyroidism,Malignant Neoplasm of Thyroid Take 1 (one) tablet by mouth daily before breakfast Reasons: Cancer of Thyroid, Underactive Thyroid 90 tablet 3 06/29 Active atorvastatin (Lipitor) 40 MG tabletIndications:Nonf amilial Hypercholesterolemia Take 1 (one) tablet by mouth once daily Reasons: Nonfamilial Hypercholesterolemia 100 tablet 3 09/07 Active Active Problems Problem Noted Date Diagnosed Date Postoperative hypothyroidism 12/24/2022 Elevated cholesterol 12/24/2022 Pulmonary embolism 07/27/2022 Hypertension 07/27/2022 Thyroid cancer 06/22/2022 Cancer Staging:Pathologic stage from 07/16/2022:Stage II(pT2, pN1b, cM0, Age at diagnosis: >= 55 years) - Signed by Momo Grijalva MD on 12/07/2024 Encounters Date Type Department Care Team Description 12/07/2024 9:43 AM CDT - 12/07/2024 11:59 PM CDT Hospital Encounter [facility] CANCER CARE DRAWSTATION [address] [place] [address], 2nd [place] [address] Discharge Disposition: Home or Self Care 12/07/2024 8:20 AM CDT Office Visit [facility] - Hematology/Oncology [address] [place] [phone] Primitivo Silver MD Willis, Maurice, MD Thyroid cancer (Primary Dx); Enlarged prostate 12/07/2024 Travel 12/04/2024 Telephone [facility] - Hematology/Oncology [address] [place] [phone] Momo Grijalva MD Appointment (Spoke with pt. regarding an upcoming appointment on SaturdayDecember 07 at 8:20a.m. with Dr. Grijalva.) 11/09/2024 9:47 AM ADZING AND BORING MACHINE HELPER - 11/09/2024 11:59 PM [facility] Hospital Encounter [facility] PET [address] [place] [address] Primitivo Silver MD Discharge Disposition: Home or Self Care 11/09/2024 9:45 AM ADZING AND BORING MACHINE HELPER - 11/09/2024 9:46 AM [facility] Hospital Encounter [facility] PET [address] [place] [address] Primitivo Silver MD Discharge Disposition: Home or Self Care 11/09/2024 Orders Only [facility] - Endocrinology [address] [place] [phone] Primitivo Silver MD Thyroid cancer; Hypothyroidism, acquired; Hypertension, unspecified type; Elevated cholesterol 11/09/2024 Travel 10/19/2024 Telephone [facility] - Endocrinology [address] [place] [phone] Primitivo Silver MD Follow-up 10/19/2024 Telephone [facility] - Endocrinology [address] [place] [phone] Primitivo Silver MD Medication Issue 10/15/2024 8:30 AM ADZING AND BORING MACHINE HELPER - 10/15/2024 11:59 PM ADZING AND BORING MACHINE HELPER Hospital Encounter [facility] NUCLEAR MEDICINE [address] [place] [phone] Primitivo Silver MD Discharge Disposition: Home or Self Care 10/15/2024 Orders Only [facility] - Endocrinology [address] [place] [phone] Primitivo Silver MD Thyroid cancer ; Hypothyroidism, acquired 10/15/2024 Travel 10/14/2024 9:00 AM ADZING AND BORING MACHINE HELPER - 10/14/2024 11:59 PM ADZING AND BORING MACHINE HELPER Hospital Encounter [facility] NUCLEAR MEDICINE [address] [place] [phone] Primitivo Silver MD Discharge Disposition: Home or Self Care 10/14/2024 Travel 10/08/2024 Travel 10/02/2024 12:20 PM ADZING AND BORING MACHINE HELPER - 10/02/2024 11:59 PM ADZING AND BORING MACHINE HELPER Hospital Encounter [facility] LAB OP DRAW STATION [address] [place] [phone] Discharge Disposition: Home or Self Care 10/02/2024 Travel 09/25/2024 12:25 PM ADZING AND BORING MACHINE HELPER - 09/25/2024 11:59 PM ADZING AND BORING MACHINE HELPER Hospital Encounter [facility] LAB OP DRAW STATION [address] [place] [address] [place] [address] Discharge Disposition: Home or Self Care 09/25/2024 Travel from Last 3 Months Immunizations Immunization Administration Dates Next Due PNEUMOCOCCAL PCV20 CONJ VAC IM 06/27/2022 TDAP, HISTORIC VACCINE 02/19/2022 Zoster Hzv Vacc Recombinant Inj Im 07/27/2022 Family History Medical History Relation Name Comments Diabetes - Type 2 Maternal Grandfather Diabetes - Type 2 Maternal Grandmother Cancer - Lung Maternal Uncle Cancer - Lung Mother Dementia Mother Diabetes - Type 2 Mother Diabetes - Type 2 Paternal Grandmother Thyroid Disease Neg Hx Relation Name Status Comments Maternal Grandfather Maternal Grandmother Maternal Uncle Alive Mother Paternal Grandmother Social History Tobacco Use Types Packs/Day Years Used Date Smoking Tobacco: Former Cigarettes 2 47.3 S tarted: 1977 Smokeless Tobacco: Never Tobacco Cessation:Counseling Given: Not Answered Comments:Quit 07/16/22 Alcohol Use Standard Drinks/Week Comments Yes 30 (1 standard drink = 0.6 oz pure alcohol) 2-3 beers per weekday, 10/day on weekend AUDIT-C Answer Date Recorded Q1: How often do you have a drink containing alc ohol? Monthly or less 07/16/2022 Average Number of Drinks Not on file 022 Frequency of Binge Drinking Not on file 03/2022 PHQ-2 Answer Date Recorded PHQ2 TOTAL SCORE 0 12/24/2022 Sex and Gender Information Value Date Recorded Sex Assigned at Not on file Legal Sex Male 5:22 AM CDT Gender Identity Not on file Sexual Orientation Not on file Last Filed Vital Signs Vital Sign Reading Time Taken Comments Blood Pressure 125/75 12/07/2024 8:53 AM CDT Pulse 94 12/07/2024 8:53 AM CDT Temperature 36.7 C (98.1 F) 12/07/2024 8:53 AM CDT Respiratory Rate 20 12/07/2024 8:53 AM CDT Oxygen Saturation 96% 12/07/2024 8:53 AM CDT Inhaled Oxygen Concentration 50% 07/19/2022 1 :05 AM ADZING AND BORING MACHINE HELPER Weight 112.4 kg (247 lb 12.8 oz) 12/07/2024 8:53 AM CDT Height 182 cm (5' 11.65 ) 12/07/2024 8:53 AM CDT Body Mass Index 33.93 12/07/2024 8:53 AM CDT Plan of Treatment Upcoming Encounters Date Type Department Care Team (Late st Contact Info) Description 12/29/2024 9:00 AM CDT Office Visit [facility] - Endocrinology [address] [facility], [place] [address] Primitivo Silver MD [address] [place] [address] [address] [place] [address] 01/10/2025 10:30 AM CDT Appointment [facility] MRI [address] [place] [phone] Primitivo Silver MD [address] [place] [address] [address] [place] [address] 01/11/2025 10:00 AM CDT Office Visit [facility] - Hematology/Oncology [address] [place] [phone] Momo Grijalva MD [address] [place] [address] Health Maintenance Due Date Last Done Comments COLOGUARD (AGES 45-75) - COLON CA SCREENING 1964 COLON MONITORING 1964 COLONOSCOPY - COLON CA SCREENING 1964 CT COLONOGRAPHY - COLON CA SCREENING 1964 Colorectal Cancer Screening 1964 FIT - COLON CA SCREENING 1964 FLEX SIG - COLON CA SCREENING 1964 HIV SCREENING 1979 LUNG CANCER SCREENING 2014 ZOSTER VACCINE (2 of 2) 09/21/2022 07/27/2022 COVID-19 VACCINE ( season) 2024 DEPRESSION SCREENING 09/09/2024 12/24/2022, 08/28/20 INFLUENZA VACCINE (Season Ended) 2025 SCREENING FOR DIABETES 07/22/2025 , 07/21/2022, 07/21/2022, Additional history exists DTAP/TDAP/TD VACCINES (2 - Td or Tdap) 02/20/2032 02/19/2022 Respiratory Syncytial Virus (RSV) Vaccine Pt: or over 60 yrs (1 - 1-dose 75+ series) 2039 PNEUMOCOCCAL VACCINE 50+ Completed 06/27/2022 HEPATITIS C SCREENING Completed 07/21/2022 HEPATITIS B VACCINE Aged Out No longe r eligible based on patient's age to complete this topic HIB VACCINE Aged Out No longer eligi ble based on patient's age to complete this topic HPV VACCINE Aged Out No longer eligi ble based on patient's age to complete this topic MENINGOCOCCAL (Group B) VACCINE SHARED DECISION-MAKING Aged Out No longer eligible based on patient's age to complete this topic MENINGOCOCCAL GROUPS A/C/Y/W VACCINE Aged Out No longer eligible based on patient's age to complete this topic Medical Devices Implanted Type Area Manager [employer] Device Identifier Shelf Expiration Date Model / Serial / Lot Seal Tisseel Prima 1 Prefil Frz 10ml Implanted:Qty: 1 on 07/18/2022 by Uziel Hernandez MD at [facility] 01/07/2024 [id number] / / [id number] Procedures Procedure Name Priority Date/Time Associated Diagnosis Comments THYROGLOBULIN BY SAMSON RFLXED Routine 12/07/2024 9:53 AM CDT Thyroid cancer (HCC) [facility] BLOOD DRAW Routine 12/07/2024 9:5 3 AM CDT Thyroid cancer (HCC) THYROGLOBULIN REFLEX PROFILE STAT 12/07/2024 9:53 AM CDT Thyroid cancer PSA SERIAL STAT 12/07/2024 9:53 AM CDT Enlarged prostate TSH Routine 12/07/2024 9:53 AM CDT Thyroid cancer Hypothyroidism, acquired [facility] XF Routine 12/07/2024 9:32 AM CDT Thyroid cancer [facility] XT NORMAL BLOOD Routine 9:32 AM CDT Thyroid cancer [facility] XT DNA AND RNA SOLID TUMOR Routine 12/07/2024 9:32 AM CDT Thyroid cancer (HCC) PET CT WHOLE BODY Routine 11/09/2024 11: 25 AM ADZING AND BORING MACHINE HELPER Thyroid cancer Hypothyroidism, acquired GLUCOSE SCREEN - POCT (IP) [facility] STAT 11/09/2024 10:04 AM ADZING AND BORING MACHINE HELPER NM TUMOR LOCAL SPECT CT Routine 10/14/2024 1:54 PM ADZING AND BORING MACHINE HELPER Thyroid cancer Hypothyroidism, acquired NM THYROID WHOLE BODY SCAN Routine 10/14/2024 1:54 PM ADZING AND BORING MACHINE HELPER Thyroid cancer Hypothyroidism, acquired THYROGLOBULIN BY SAMSON RFLXED Routine 10/02/2024 12:44 PM ADZING AND BORING MACHINE HELPER Thyroid cancer Hypothyroidism, acquired TSH Routine 10/02/2024 12:44 PM ADZING AND BORING MACHINE HELPER Thyroid cancer Hypothyroidism, acquired THYROGLOBULIN REFLEX PROFILE Routine 10/02/2024 12:44 PM ADZING AND BORING MACHINE HELPER Thyroid cancer Hypothyroidism, acquired THYROGLOBULIN BY SAMSON RFLXED Routine 09/25/2024 12:38 PM ADZING AND BORING MACHINE HELPER Thyroid cancer Hypothyroidism, acquired TSH Routine 09/25/2024 12:38 PM ADZING AND BORING MACHINE HELPER Thyroid cancer Hypothyroidism, acquired THYROGLOBULIN REFLEX PROFILE Routine 09/25/2024 12:38 PM ADZING AND BORING MACHINE HELPER Thyroid cancer Hypothyroidism, acquired BASIC METABOLIC PANEL (CALCIUM TOTAL) AM Draw 07/22/2022 4:57 AM ADZING AND BORING MACHINE HELPER HEPATITIS C AB SCREEN RFLX NAAT QUANT Routine 07/21/2022 7:19 AM ADZING AND BORING MACHINE HELPER from Last 3 Months or Most Recently Relevant to Health Maintenance Results * [facility] BLOOD DRAW (12/07/2024 9:53 AM CDT) Blood Sent to [facility] 12/08/2024 10:00 AM CDT [facility] Comment:Collection and sendo ut completed. Blood BLOOD SPECIMEN / Unknown Lab Venipuncture / Unknown 12/07/2024 9:53 AM CDT 12/08/2024 9:31 AM CDT Momo Grijalva MD LAB - HEMATOLOGY ORDERABLES Fi nal Result Performing Organization Address [facility]/ZIP Co de Phone Number [facility] [address] [address], [facility] [phone] * THYROGLOBULIN REFLEX PROFILE (12/07/2024 9:53 AM CDT) Only the most recent of3 resultswithin the time period is included. Thyroglobulin Antibody <1.0 0.0 - 0.9 IU/mL 12/08/2024 4:11 PM CDT [facility] ([facility]) Comment: Thyroglobulin Antibody measured by [facility] [place] Methodology It should be noted that the presence of thyroglobulin antibodies may not be pathogenic nor diagnostic, especially at very low levels. The assay oil gas and pipe tester has found that four percent of individuals without evidence of thyroid disease or autoimmunity will have positive TgAb levels up to 4 IU/mL. Blood BLOOD SPECIMEN / Unknown Lab Venipuncture / Unknown 12/07/2024 9:53 AM CDT 12/07/2024 10:02 AM CDT Narrative [facility] ([facility]) - 12/08/2024 4:11 PM CDT Performed at: [address] [place] [address] [address] [place], [place] [id number] Signal Tower Operator: Tommy Flores PhD, Phone: [phone] Momo Grijalva MD LAB - CHEMISTRY ORDERABLES Fin al Result Performing Organization Address City/[facility]/ZIP Co de Phone Number [facility] ([facility]) [address] [place] [address], [facility] * THYROGLOBULIN BY SAMSON RFLXED (12/07/2024 9:53 AM CDT) Only the most recent of3 resultswithin the time period is included. Thyroglobulin by SAMSON 7.5 1.4 - 29.2 ng/mL 12/08/2024 4:11 PM CDT [facility] Comment: According to the National Academy of Clinical Biochemistry, the reference interval for Thyroglobulin (TG) should be related to euthyroid patients and not for patients who underwent thyroidectomy. TG reference intervals for these patients depend on the residual mass of the thyroid tissue left after surgery. Establishing a post-operative baseline is recommended. The assay limit of quantitation is 0.1 ng/mL Thyroglobulin measured by [facility] [place] Immunometric Assay Blood BLOOD SPECIMEN / Unknown Lab Venipuncture / Unknown 12/07/2024 9:53 AM CDT 12/07/2024 10:02 AM CDT Narrative [facility] - 12/08/2024 4:11 PM CDT Performed at: [address] [place], [place] [id number] [place], [place] [id number] Signal Tower Operator: Tommy Flores PhD, Phone: [phone] Momo Grijalva MD LAB - CHEMISTRY ORDERABLES Fin al Result Performing Organization Address City/[facility]/ZIP Co de Phone Number [facility] ([facility]) [address] [place] [address] [[email or web address]] * PSA SERIAL (12/07/2024 9:53 AM CDT) [facility] PSA Total 1.6 <4.0 ng/mL 12/07/2024 10:53 AM CDT [facility] Blood BLOOD SPECIMEN / Unknown Lab Venipuncture / Unknown 12/07/2024 9:53 AM CDT 12/07/2024 10:02 AM CDT Narrative [facility] - 12/07/2024 10:53 AM CDT PSA values will vary depending on the testing procedure used. Results are not comparable across different test methods. [facility] uses the OpenStudy Alinity immunoassay test method. Momo Grijalva MD LAB - CHEMISTRY ORDERABLES Fin al Result Performing Organization Address City/[facility]/ZIP Co de Phone Number [facility] [address] [place] [address], [facility] [phone] * (ABNORMAL) TSH (12/07/2024 9:53 AM CDT) Only the most recent of3 resultswithin the time period is included. TSH 0.137(L) 0.350 - 4.940 uIU/mL 12/07/2024 10:47 AM CDT [facility] Blood BLOOD SPECIMEN / Unknown Lab Venipuncture / Unknown 12/07/2024 9:53 AM CDT 12/07/2024 10:04 AM CDT us Primitivo Silver MD LAB - CHEMISTRY ORDERABLES Final Result [address] [address], [facility] [phone] * [facility] xF: xF+ Liquid Biopsy - 523 Genes (12/07/2024 9:32 AM CDT) Pathologist [facility] Reason for Study To identify mutations relevant to patient's cancer. 12/16/2024 1:06 PM CDT [facility] Genetic Diseases Assessed Cancer 12/16/2024 1:06 PM CDT [facility] Description of Ranges of DNA Sequences Examined 523 gene liquid biopsy 12/16/2024 1:06 PM CDT [facility] Overall Interpretation inconclusive 12/16/2024 1:06 PM CDT [facility] [email or web address] 12/16/2024 1:06 PM CDT [facility] Comment:[facility] link Low Coverage Regions CARM1, CUL4A, DNMT1, FANCC, MAPK1, NOTCH1, NOTCH2, PHLPP2, PIK3R2, PTPRT, RAD51C, RHOA, RXRA, SDHAF2, TCF7L2, TGFBR1, TP53, TP63 12/16/2024 1:06 PM CDT [facility] Tumor Mutational [place] 3.8 m/MB 12/16/2024 1:06 PM CDT [facility] Genomic Variant Note No reportable pathogenic variants were found. 12/16/2024 1:06 PM CDT [facility] Microsatellite Instability Note MSI-High not detected 12/16/2024 1:06 PM CDT [facility] Treatment Implications Note No reportable treatment options found. 12/16/2024 1:06 PM CDT [facility] Blood 12/07/2024 9:32 AM CDT 12/07/2024 9:32 AM CDT Narrative This result has genomic variants that were not included in this document. us Momo Grijalva MD LAB - GENETIC ORDERABLES Final Result Performing Organization Address [facility] Co de Phone Number [facility] [address] [facility], [address] [phone] * [facility] xT Normal Blood (12/07/2024 9:32 AM CDT) [facility] 12/07/2024 11:01 PM CDT [facility] Comment:See NGS Report for R esults. Blood 12/07/2024 9:32 AM CDT 12/07/2024 9:32 AM CDT us Momo Grijalva MD LAB - GENETIC ORDERABLES Final Result Performing Organization Address [facility] Phone Number [facility] [address] [facility], [address] [phone] * PET CT Whole Body (11/09/2024 11:25 AM ADZING AND BORING MACHINE HELPER) Anatomical Region Laterality Modality Positron Emissio n Tomography (PET) 11/09/2024 9:50 AM ADZING AND BORING MACHINE HELPER Impressions 11/09/2024 6:00 PM ADZING AND BORING MACHINE HELPER IMPRESSION: 1.Postsurgical changes within the neck, with a tiny focal uptake seen, and no definite underlying enlarged lymph node, closely related to the underlying surgical clip, suspicious for metastasis. 2.Subcentimeter mild FDG avid bilateral pulmonary nodules within the bilateral lower lung lobes, described above, suspicious for metastasis. 3.Focal intense activity within the sigmoid colon, suspicious for second primary malignancy and is likely metastatic. Suggest correlation with colonoscopy. 4.FDG avid lesion within the pituitary gland, could represent pituitary adenoma, further correlation for MRI recommended. 5.Increased FDG activity noted within the distal end of the esophagus, stomach and third part of duodenum, likely inflammatory. Suggest correlation with endoscopy, if clinically warranted. 6.Mild FDG avidity seen in the left prostate lobe, consider PSA correlation. 7.Bilateral enlarged inguinal lymph nodes, with mild FDG activity, likely inflammatory. > Dictated by Mili Salinas MD (Teacher Dancing) 11/09/2024 9:50 AM I, Justino Alcantar MD have personally reviewed and interpreted this examination/study. > Interpreting Provider: Justino Alcantar MD on 11/09/2024 6:00 PM Narrative 11/09/2024 6:00 PM ADZING AND BORING MACHINE HELPER PROCEDURE: PET CT WHOLE BODY DATE/TIME OF EXAM: 11/09/2024 9:47 AM CLINICAL INFORMATION: None relevant/not provided if blank. Indication: C73: Thyroid cancer (HCC) E03.9: Hypothyroidism, acquired Procedure: FDG PET/CT Study. Referring Physician: Primitivo Silver MD HISTORY: 59-year-old male patient with history of papillary thyroid cancer [id number] and positive cervical lymph nodes, status post thyroidectomy and right central neck dissection on 07/16/2022, received 30.2 mCi ofI-131 therapy on 09/19/2022, his most recent I-123 scan on 10/15/2024 was negative, given the rising thyroglobulin of 68.3 dated on 10/02/2024, therefore referred for further FDG PET/CT evaluation. Evaluate for subsequent treatment strategy. TECHNIQUE: 8.5 mCi of F-18 FDG by IV in the right antecubital fossa. PET/CT image acquisition from top of the head to the feet after approximately 60 minutes post-injection with the CT being low-dose, non-contrast. No separate report for the CT was used for attenuation correction and anatomic localization. Blood glucose level at the time of injection was 110 mg/dl. Patient's BMI is 31.8 kg/m . COMPARISON: No similar prior available in patient chart. Iodine-123 whole body scan from 10/15/2024 reviewed. FINDINGS: For reference, SUVmax of liver is 4.0. Head and neck: There is physiological FDG activity throughout the brain parenchyma. Focal activity seen within the pituitary gland with SUV max 9.4, could represent pituitary adenoma. No hypermetabolic or enlarged cervical lymph node is identified. Postsurgical changes within the right neck, there is focal tiny metabolic activity noted adjacent to a surgical clip, for reference SUV max of 2.1. Chest: Scattered paraseptal emphysematous changes in bilateral lungs predominantly in the bilateral upper lung lobes. No pleural effusion or focal pleural thickening is identified. There is no evidence of pneumothorax. A 7 mm pulmonary nodule seen within the right lower lung adjacent to the major fissure with subtle FDG activity, SUV max 1.0 (for reference background lung activity 0.7). Additional sub- 5 mm nodule seen within the medial aspect of the left lower lung lobe with mild metabolic activity and SUV max of 1.7. The heart size is normal. No pericardial effusion is present. No hypermetabolic or enlarged mediastinal, axillary, or supraclavicular lymphadenopathy is seen. Atherosclerotic calcifications along the coronary arteries and the thoracic aorta. Abdomen and pelvis: Within the limitations of a noncontrast examination, there is increased FDG activity within the distal esophageal region SUV max of 5.9, with diffuse activity within the stomach SUV max of 4.4 and increased activity within the second part of duodenum with SUV max of 6.4, likely inflammatory. Surgical clips seen within the midline anterior abdominal wall, likely representing prior surgery. Increased FDG activity within the left prostate lobe SUV max of 4.1. Bilateral mild FDG avid inguinal lymph nodes, largest seen in the left inguinal region and SUV max of 2.3 measuring approximately 1.5 cm in largest transverse dimension, and the left inguinal node SUV max 2.1. Intense activity seen within the sigmoid colon SUV max 16.4. Otherwise the remaining bowel show normal FDG activity. No free air or free fluid is identified within the abdomen. There is no hypermetabolic or enlarged abdominal or pelvic lymphadenopathy. Atherosclerotic calcification of the abdominal aorta and its branches is identified. Musculoskeletal: No suspicious lytic or blastic lesions are identified. No abnormal FDG uptake is seen within the osseous structures. Multilevel degenerative changes throughout the spinal column are identified. Periarticular soft tissue uptake within the bilateral hip joints, likely inflammatory. Procedure Note Justino Alcantar MD - 11/09/2024 PROCEDURE: PET CT WHOLE BODY DATE/TIME OF EXAM: 11/09/2024 9:47 AM CLINICAL INFORMATION: None relevant/not provided if blank. Indication: C73: Thyroid cancer (HCC) E03.9: Hypothyroidism, acquired Procedure: FDG PET/CT Study. Referring Physician: Primitivo Silver MD HISTORY: 59-year-old male patient with history of papillary thyroidcancer [id number] and positive cervical lymph nodes, status post thyroidectomyand right central neck dissection on 07/16/2022, received 30.2 mCi ofI-131 therapy on 09/19/2022, his most recent I-123 scan on 10/15/2024 wasnegative, given the rising thyroglobulin of 68.3 dated on 10/02/2024, therefore referred for further FDG PET/CT evaluation. Evaluate for subsequent treatment strategy. TECHNIQUE: 8.5 mCi of F-18 FDG by IV in the right antecubital fossa. PET/CT image acquisition from top of the head to the feet after approximately 60 minutes post-injection with the CT being low-dose, non-contrast. No separate report for the CT was used for attenuation correction and anatomic localization. Blood glucose level at the time of injection was 110 mg/dl. Patient's BMI is 31.8 kg/m . COMPARISON: No similar prior available in patient chart. Iodine-123whole body scan from 10/15/2024 reviewed. FINDINGS: For reference, SUVmax of liver is 4.0. Head and neck: There is physiological FDG activity throughout the brain parenchyma.Focal activity seen within the pituitary gland with SUV max 9.4, couldrepresent pituitary adenoma. No hypermetabolic or enlarged cervical lymph node is identified. Postsurgical changes within the right neck, there is focaltiny metabolic activity noted adjacent to a surgical clip, for reference SUVmax of 2.1. Chest: Scattered paraseptal emphysematous changes in bilateral lungspredominantly in the bilateral upper lung lobes. No pleural effusion or focal pleural thickening is identified. There is no evidence of pneumothorax. A 7 mm pulmonary nodule seen within the right lower lung adjacent to the major fissure with subtle FDG activity, SUV max 1.0 (for reference background lung activity 0.7). Additional sub- 5 mm nodule seen within the medial aspect of the left lower lung lobe with mild metabolic activity and SUVmax of 1.7. The heart size is normal. No pericardial effusion is present. No hypermetabolic or enlarged mediastinal, axillary, or supraclavicular lymphadenopathy is seen. Atherosclerotic calcifications along thecoronary arteries and the thoracic aorta. Abdomen and pelvis: Within the limitations of a noncontrast examination, there is increasedFDG activity within the distal esophageal region SUV max of 5.9, withdiffuse activity within the stomach SUV max of 4.4 and increased activity within the second part of duodenum with SUV max of 6.4, likely inflammatory. Surgical clips seen within the midline anterior abdominal wall, likely representing prior surgery. Increased FDG activity within the leftprostate lobe SUV max of 4.1. Bilateral mild FDG avid inguinal lymph nodes,largest seen in the left inguinal region and SUV max of 2.3 measuringapproximately 1.5 cm in largest transverse dimension, and the left inguinal node SUVmax 2.1. Intense activity seen within the sigmoid colon SUV max 16.4.Otherwise the remaining bowel show normal FDG activity. No free air or free fluid is identified within the abdomen. There is no hypermetabolic or enlarged abdominal or pelvic lymphadenopathy. Atherosclerotic calcification of the abdominal aorta and its branches is identified. Musculoskeletal: No suspicious lytic or blastic lesions are identified. No abnormal FDG uptake is seen within the osseous structures. Multilevel degenerative changes throughout the spinal column are identified. Periarticular soft tissue uptake within the bilateral hip joints, likely inflammatory. IMPRESSION: 1.Postsurgical changes within the neck, with a tiny focal uptake seen,and no definite underlying enlarged lymph node, closely related to the underlying surgical clip, suspicious for metastasis. 2.Subcentimeter mild FDG avid bilateral pulmonary nodules within the bilateral lower lung lobes, described above, suspicious for metastasis. 3.Focal intense activity within the sigmoid colon, suspicious for second primary malignancy and is likely metastatic. Suggest correlation with colonoscopy. 4.FDG avid lesion within the pituitary gland, could represent pituitary adenoma, further correlation for MRI recommended. 5.Increased FDG activity noted within the distal end of the esophagus, stomach and third part of duodenum, likely inflammatory. Suggest correlation with endoscopy, if clinically warranted. 6.Mild FDG avidity seen in the left prostate lobe, consider PSA correlation. 7.Bilateral enlarged inguinal lymph nodes, with mild FDG activity,likely inflammatory. > Dictated by Atheel Alsagheer, MD (Teacher Dancing) 11/09/2024 9:50 AM Justino Fernandez MD have personally reviewed and interpreted this examination/study. > Interpreting Provider: Justino Alcantar MD on 11/09/2024 6:00 PM us Primitivo Silver MD NM ORDERABLES Final Resul t * (ABNORMAL) GLUCOSE SCREEN - POCT (IP) [facility] (11/09/2024 10:04 AM ADZING AND BORING MACHINE HELPER) Glucose WB/POC 110(A) 70 - 99 mg/dL [facility] POCT TESTING Blood BLOOD SPECIMEN / Unknown 11/09/2024 10:04 AM ADZING AND BORING MACHINE HELPER us Primitivo Silver MD LAB - POINT OF CARE ORDERAB LES Final Result [facility] POCT TESTING [address] [place] [address], [facility] [phone] * NM Tumor Local Spect CT (10/14/2024 1:54 PM ADZING AND BORING MACHINE HELPER) Anatomical Region Laterality Modality Nuclear Medicine 10/14/2024 12:0 1 PM ADZING AND BORING MACHINE HELPER Impressions 10/15/2024 3:25 PM ADZING AND BORING MACHINE HELPER Impression: No abnormal radioactive iodine uptake seen within the neck and or visualized portion of the chest. Given rising thyroglobulin levels, this could represent dedifferentiated tumor activity. Recommend further evaluation with FDG PET/CT. > Dictated by Mili Salinas MD (Teacher Dancing) 10/14/2024 12:01 PM hCeryl Fernandez DO have personally reviewed and interpreted this examination/study. > Interpreting Provider: Cheryl Rodriguez DO on 10/15/2024 3:25 PM Narrative 10/15/2024 3:25 PM ADZING AND BORING MACHINE HELPER PROCEDURE: NM THYROID WHOLE BODY SCAN, NM TUMOR LOCAL SPECT CT DATE/TIME OF EXAM: 10/15/2024 11:12 AM CLINICAL INFORMATION: None relevant/not provided if blank. Indication: C73: Thyroid cancer (HCC) E03.9: Hypothyroidism, acquired Procedure: I-123 whole body scan for thyroid cancer Technique: 4.19 mCi of I-123 per oral, images were obtained after 24 hours. SPECT-CT of the head and neck and chest obtained. History: A 59-year-old patient with history of papillary thyroid cancer [id number] and positive 12 cervical lymph nodes, status post thyroidectomy and right central neck dissection on 07/16/2022, received 30.2 mCi ofI-131 sodium iodide on 09/19/2022, his post therapy scan on 09/24/2022 revealed no evidence of metastasis. His recent lab result: Thyroglobulin from 10/02/2024 was 68.3 ng/mL (previously was 40.6 ng/mL from 09/25/2024) Thyroglobulin antibody from 10/02/2024 was<1.0 IU/mL (previously was <1.0 IU/mL from 09/25/2024) TSH from 10/02/2024 was 56.2 uIU/mL (previously was 40.3 on 09/25/2024) Patient's BMI is 33.5 kg/m . Findings: Anterior and posterior whole body images show : No residual tracer activity in the thyroid bed. Physiologic tracer activity is seen in the stomach, nasopharynx, bowel and bladder. SPECT-CT images demonstrate no activity noted within the surgical bed, no tracer avid or enlarged cervical lymph nodes noted, no metastatic foci seen within the field of view. CT portion of the study demonstrate post surgical changes involving the thyroidectomy and right neck dissection, atherosclerotic calcifications within the coronary arteries and the thoracic aorta, linear atelectatic changes involving the right major fissure. Degenerative disease changes along visualized spine. Procedure Note Cheryl Rodriguez, - 10/15/2024 PROCEDURE: NM THYROID WHOLE BODY SCAN, NM TUMOR LOCAL SPECT CT DATE/TIME OF EXAM: 10/15/2024 11:12 AM CLINICAL INFORMATION: None relevant/not provided if blank. Indication: C73: Thyroid cancer (HCC) E03.9: Hypothyroidism, acquired Procedure: I-123 whole body scan for thyroid cancer Technique: 4.19 mCi of I-123 per oral, images were obtained after 24hours. SPECT-CT of the head and neck and chest obtained. History: A 59-year-old patient with history of papillary thyroid cancer [id number] and positive 12 cervical lymph nodes, status postthyroidectomy and right central neck dissection on 07/16/2022, received 30.2 mCiofI-131 sodium iodide on 09/19/2022, his post therapy scan on 09/24/2022 revealedno evidence of metastasis. His recent lab result: Thyroglobulin from 10/02/2024 was 68.3 ng/mL (previously was 40.6 ng/mLfrom 09/25/2024) Thyroglobulin antibody from 10/02/2024 was<1.0 IU/mL (previously was <1.0 IU/mL from 09/25/2024) TSH from 10/02/2024 was 56.2 uIU/mL (previously was 40.3 on 09/25/2024) Patient's BMI is 33.5 kg/m . Findings: Anterior and posterior whole body images show : No residual tracer activity in the thyroid bed. Physiologic tracer activity is seen in the stomach, nasopharynx, boweland bladder. SPECT-CT images demonstrate no activity noted within the surgical bed,no tracer avid or enlarged cervical lymph nodes noted, no metastatic fociseen within the field of view. CT portion of the study demonstrate postsurgical changes involving the thyroidectomy and right neck dissection, atherosclerotic calcifications within the coronary arteries and the thoracic aorta, linear atelectatic changes involving the right major fissure. Degenerative disease changes along visualized spine. Impression: No abnormal radioactive iodine uptake seen within the neck and or visualized portion of the chest. Given rising thyroglobulin levels, this could represent dedifferentiated tumor activity. Recommend further evaluation with FDG PET/CT. > Dictated by Mili Salinas MD (Teacher Dancing) 10/14/2024 12:01PM Cheryl Fernandez DO have personally reviewed and interpreted this examination/study. > Interpreting Provider: Cheryl Rodriguez DO on 10/15/2024 3:25 PM us Primitivo Sliver MD NM ORDERABLES Final Resul t * NM Thyroid Whole Body Scan (10/14/2024 1:54 PM ADZING AND BORING MACHINE HELPER) Anatomical Region Laterality Modality Chest Nuclear Medicine 10/14/2024 12:0 1 PM ADZING AND BORING MACHINE HELPER Impressions 10/15/2024 3:25 PM ADZING AND BORING MACHINE HELPER Impression: No abnormal radioactive iodine uptake seen within the neck and or visualized portion of the chest. Given rising thyroglobulin levels, this could represent dedifferentiated tumor activity. Recommend further evaluation with FDG PET/CT. > Dictated by Mili Salinas MD (Teacher Dancing) 10/14/2024 12:01 PM Cheryl Fernandez DO have personally reviewed and interpreted this examination/study. > Interpreting Provider: Cheryl Rodriguez DO on 10/15/2024 3:25 PM Narrative 10/15/2024 3:25 PM ADZING AND BORING MACHINE HELPER PROCEDURE: NM THYROID WHOLE BODY SCAN, NM TUMOR LOCAL SPECT CT DATE/TIME OF EXAM: 10/15/2024 11:12 AM CLINICAL INFORMATION: None relevant/not provided if blank. Indication: C73: Thyroid cancer (HCC) E03.9: Hypothyroidism, acquired Procedure: I-123 whole body scan for thyroid cancer Technique: 4.19 mCi of I-123 per oral, images were obtained after 24 hours. SPECT-CT of the head and neck and chest obtained. History: A 59-year-old patient with history of papillary thyroid cancer [id number] and positive 12 cervical lymph nodes, status post thyroidectomy and right central neck dissection on 07/16/2022, received 30.2 mCi ofI-131 sodium iodide on 09/19/2022, his post therapy scan on 09/24/2022 revealed no evidence of metastasis. His recent lab result: Thyroglobulin from 10/02/2024 was 68.3 ng/mL (previously was 40.6 ng/mL from 09/25/2024) Thyroglobulin antibody from 10/02/2024 was<1.0 IU/mL (previously was <1.0 IU/mL from 09/25/2024) TSH from 10/02/2024 was 56.2 uIU/mL (previously was 40.3 on 09/25/2024) Patient's BMI is 33.5 kg/m . Findings: Anterior and posterior whole body images show : No residual tracer activity in the thyroid bed. Physiologic tracer activity is seen in the stomach, nasopharynx, bowel and bladder. SPECT-CT images demonstrate no activity noted within the surgical bed, no tracer avid or enlarged cervical lymph nodes noted, no metastatic foci seen within the field of view. CT portion of the study demonstrate post surgical changes involving the thyroidectomy and right neck dissection, atherosclerotic calcifications within the coronary arteries and the thoracic aorta, linear atelectatic changes involving the right major fissure. Degenerative disease changes along visualized spine. Procedure Note Cehryl Rodriguez, DO - 10/15/2024 PROCEDURE: NM THYROID WHOLE BODY SCAN, NM TUMOR LOCAL SPECT CT DATE/TIME OF EXAM: 10/15/2024 11:12 AM CLINICAL INFORMATION: None relevant/not provided if blank. Indication: C73: Thyroid cancer (HCC) E03.9: Hypothyroidism, acquired Procedure: I-123 whole body scan for thyroid cancer Technique: 4.19 mCi of I-123 per oral, images were obtained after 24hours. SPECT-CT of the head and neck and chest obtained. History: A 59-year-old patient with history of papillary thyroid cancer [id number] and positive 12 cervical lymph nodes, status postthyroidectomy and right central neck dissection on 07/16/2022, received 30.2 mCiofI-131 sodium iodide on 09/19/2022, his post therapy scan on 09/24/2022 revealedno evidence of metastasis. His recent lab result: Thyroglobulin from 10/02/2024 was 68.3 ng/mL (previously was 40.6 ng/mLfrom 09/25/2024) Thyroglobulin antibody from 10/02/2024 was<1.0 IU/mL (previously was <1.0 IU/mL from 09/25/2024) TSH from 10/02/2024 was 56.2 uIU/mL (previously was 40.3 on 09/25/2024) Patient's BMI is 33.5 kg/m . Findings: Anterior and posterior whole body images show : No residual tracer activity in the thyroid bed. Physiologic tracer activity is seen in the stomach, nasopharynx, boweland bladder. SPECT-CT images demonstrate no activity noted within the surgical bed,no tracer avid or enlarged cervical lymph nodes noted, no metastatic fociseen within the field of view. CT portion of the study demonstrate postsurgical changes involving the thyroidectomy and right neck dissection, atherosclerotic calcifications within the coronary arteries and the thoracic aorta, linear atelectatic changes involving the right major fissure. Degenerative disease changes along visualized spine. Impression: No abnormal radioactive iodine uptake seen within the neck and or visualized portion of the chest. Given rising thyroglobulin levels, this could represent dedifferentiated tumor activity. Recommend further evaluation with FDG PET/CT. > Dictated by Mili Salinas MD (Teacher Dancing) 10/14/2024 12:01PM Cheryl Fernandez DO have personally reviewed and interpreted this examination/study. > Interpreting Provider: Cheryl Rodriguez DO on 10/15/2024 3:25 PM Primitivo Silver MD NM ORDERABLES Final Resul t * (ABNORMAL) BASIC METABOLIC PANEL (CALCIUM TOTAL) (07/22/2022 4:57 AM ADZING AND BORING MACHINE HELPER) BUN 21 7 - 26 mg/dL 07/22/2022 6:25 AM [facility] Creatinine 1.16 0.71 - 1.16 mg/dL 07/22/2022 6:25 AM [facility] Sodium 138 136 - 145 mmol/L 07/22/2022 6:25 AM [facility] Potassium 4.7(H) 3.5 - 4.5 mmol/L 07/22/2022 6:25 AM [facility] Chloride 100 98 - 107 mmol/L 07/22/2022 6:25 AM [facility] CO2 32(H) 22 - 29 mmol/L 07/22/2022 6:25 AM [facility] Glucose 114 70 - 115 mg/dL 07/22/2022 6:25 AM [facility] Calcium 9.2 8.4 - 10.2 mg/dL 07/22/2022 6:25 AM [facility] Anion Gap 11 8 - 18 07/22/2022 6:25 AM [facility] BUN/Creatinine Ratio 18 7 - 23 07/22/2022 6:25 AM [facility] Osmolality Calculated 290 270 - 300 mOsm/kg 07/22/2022 6:25 AM [facility] eGFR by CKD-EPI 73(L) >=90 mL/min/1.7 3 m2 07/22/2022 6:25 AM [facility] Blood BLOOD SPECIMEN / Unknown Lab Venipuncture / Unknown 07/22/2022 4:57 AM ADZING AND BORING MACHINE HELPER 07/22/2022 5:58 AM ADZING AND BORING MACHINE HELPER Uziel Hernandez MD LAB - CHEMISTRY ORDERABLES Fi nal Result Performing Organization Address City/[facility]/ZIP Co de Phone Number [address] [address], [facility] [phone] * HEPATITIS C AB SCREEN RFLX NAAT QUANT (07/21/2022 7:19 AM ADZING AND BORING MACHINE HELPER) Hepatitis C Antibody Non-react karen Non-reac tive 07/21/2022 9:13 AM ADZING AND BORING MACHINE HELPER [facility] Comment:Hepatitis C Antibody screen indicates no serologic evidence of past or current infection with Hepatitis C Virus. Patients with unexplained liver disease who are immunocompromised or suspected of having acute Hepatitis C infection may benefit from Nucleic Acid Test (STALIN) for Hepatitis C Viral RNA to confirm Hepatitis C status. Blood BLOOD SPECIMEN / Unknown Lab Venipuncture / Unknown 07/21/2022 7:19 AM ADZING AND BORING MACHINE HELPER 07/21/2022 7:29 AM ADZING AND BORING MACHINE HELPER Holly Lassiter MD LAB - CHEMISTRY ORDERABLES Maryann l Result Performing Organization Address City/[facility] Co de Phone Number [address] [address], [facility] [phone] from Last 3 Months or Most Recently Relevant to Health Maintenance Insurance [facility] Address: [facility] [id number] [place] [address] Advance Directives * Full Code (Latest Code Status on File) Date Activated Date Inactivated Comments 07/16/2022 1:04 PM 07/22/2022 4:24 PM * Full Code Date Activated Date Inactivated Comments 07/16/2022 6:41 AM 07/16/2022 1:04 PM Care Teams Water Treatment Plant Operator Relationship Specialty Start Date End Date Robert Gonzalez PCP - General 09/12/23
--- OUTSIDE RECORDS SUMMARY | 2024-12-22 09:51 | XMS_ITS ---
Author Organization [facility] Address [address] [place] [address] Care Team Providers Care Property Field Adjuster Name Role Phone Rboert Gonzalez Primary Care Provider Unavailabl e Active Problems Problem Noted Date Diagnosed Date Postoperative hypothyroidism 12/24/2022 Elevated cholesterol 12/24/2022 Pulmonary embolism 07/27/2022 Hypertension 07/27/2022 Thyroid cancer 06/22/2022 Cancer Staging:Pathologic stage from 07/16/2022:Stage II(pT2, pN1b, cM0, Age at diagnosis: >= 55 years) - Signed by Momo Grijalva MD on 12/07/2024 Current Treatment and Therapy Plans No current plan information found. Past Treatment and Therapy Plans No past plan information found. Lifetime Dose Tracking * Chemical Lifetime Dose Automatic Entry Manual Entr y Dose Length Product 997.8 mGy-cm 997.8 mGy-cm 0 mGy-cm
--- OUTSIDE RECORDS SUMMARY | 2024-12-22 09:51 | XMS_ITS | Clinical Summary ---
Author Organization [facility] Address [address] [facility] [place] [address] Care Team Providers Care Hydro Technician Name Role Phone Robert Gonzalez MD Primary Care Provider [phone] Allergies Active Allergy Reactions Criticality Noted Date Comments Iodine Unknown 06/14/2022 Medications lisinopriL (PRINIVIL) 10 mg tablet Take 10 mg by mouth daily. 05/18/2022 Active simvastatin (ZOCOR) 40 mg tablet Take 40 mg by mouth daily. 05/18/2022 Active levothyroxine 175 mcg tablet 07/21/2022 Acti ve albuterol sulfate 90 mcg/Actuation inhaler 07/21/2022 Active acetaminophen (TYLENOL) 325 mg tablet Take 650 mg by mouth every 6 hours as needed. 07/21/2022 Active Xarelto 10 mg Tablet 07/23/2022 Active Active Problems Problem Noted Date Diagnosed Date Thyroid cancer 06/14/2022 Family History Medical History Relation Name Comments Cancer Mother Relation Name Status Comments Brother Alive Father Alive Mother Social History Tobacco Use Types Packs/Day Years Used Date Smoking Tobacco: Former Cigarettes 2 45 1 09/15/1976 - 07/16/2022 Smokeless Tobacco: Never Tobacco Cessation:Counseling Given: Not Answered Sex and Gender Information Value Date Recorded Sex Assigned at Not on file Legal Sex Male 3:30 PM CDT Gender Identity Not on file Sexual Orientation Not on file Last Filed Vital Signs Vital Sign Reading Time Taken Comments Blood Pressure 116/68 08/15/2022 8:21 AM RECEIVING ROOM CLERK Pulse 65 08/15/2022 8:21 AM RECEIVING ROOM CLERK Temperature 36.6 C (97.8 F) 08/15/2022 8:21 AM RECEIVING ROOM CLERK Respiratory Rate 16 08/15/2022 8:21 AM RECEIVING ROOM CLERK Oxygen Saturation 92% 08/15/2022 8:21 AM RECEIVING ROOM CLERK Inhaled Oxygen Concentration - - Weight 115.2 kg (254 lb) 08/15/2022 8:21 AM RECEIVING ROOM CLERK Height 185.4 cm (6' 1 ) 06/14/2022 10:25 AM CDT Body Mass Index 33.51 06/14/2022 10:25 AM CDT Plan of Treatment Health Maintenance Due Date Last Done Comments COLORECTAL SCREENING 2009 Colorectal Cancer Screening 2009 FIT-DNA Q 3 years 2009 FIT/FOBT Q 1 year 2009 Flex Sig/CT Colonography Q 5 years 2009 ZOSTER VACCINE (2 of 2) 09/21/2022 07/27/2022 INFLUENZA VACCINE (#1) 2024 DTAP/TDAP/TD VACCINES (2 - T d or Tdap) 02/20/2032 02/19/2022 RSV VACCINE (60+ or ) (1 - 1-dose 75+ series) 2039 HEPATITIS B VACCINES Aged Out No long er eligible based on patient's age to complete this topic Insurance Care Teams Hydro Technician Relationship Specialty Start Date End Date Robert Gonzalez MD PCP - General Family Practice 06/14/22
== END 2024-12-22 09:21 | disposition home or self-care (01) ==
PROVIDERS: PCP Nurse Practitioner Family; Visit Provider Nurse Practitioner Family
DX: R42 Dizziness and giddiness (principal); R06.02 Shortness of breath
CPT/HCPCS: 93351

== ENCOUNTER 2025-02-15 02:25 | Day surgery (SDC) | payer BC, SELFPAY ==
[2025-02-02 15:46] VITALS: BMI 32.3
--- NOTE | 2025-02-10 11:08 | PC.NURSE ---
Spoke with _patient regarding medication xarelto. Patient verbalizes understanding that the last dose is to be taken on 02/12/25 and the Endoscopist will instruct them when to restart after the procedure.
--- OUTSIDE RECORDS SUMMARY | 2025-02-15 02:27 | XMS_ITS ---
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
--- OUTSIDE RECORDS SUMMARY | 2025-02-15 02:27 | XMS_ITS | Clinical Summary ---
Author Organization 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,non-owned Affiliates and Associated Physician Practices is amultiple site organization consisting of ambulatory clinics and hospital sitesin [place], [place], [place] and [place]. This disclosure is being madepursuant to the Care Everywhere program and may not contain all information available regarding this patient. Last updated 18.[facility] Allergies Active Allergy Reactions Criticality Noted Date [...] tablet by mouth once daily 2021 Active Xarelto 20 MG tablet Take 1 (one) tablet by mouth every evening 2024 Active levothyroxine (Synthroid) 175 MCG tabletIndications:Hypo thyroidism,Malignant Neoplasm of Thyroid Take 1 (one) tablet by mouth daily before breakfast Reasons: Cancer of Thyroid, Underactive Thyroid 90 tablet 3 12/29 Active atorvastatin (Lipitor) 40 MG tabletIndications:Nonf amilial Hypercholesterolemia Take 1 (one) tablet by mouth once daily Reasons: Nonfamilial Hypercholesterolemia 100 tablet 3 12/29 Active predniSONE (Deltasone) 50 MG tabletIndications:Thyr oid cancer (HCC),Contrast media allergy Take 1 tablet by mouth 13 hours before contrast medium administration, 7 hours before contrast medium administration, and 1 hour before contrast medium administration. 3 tablet 2024 Active diphenhydrAMINE (Benadryl) 25 MG tabletIndications:Thyr oid cancer (HCC),Contrast media allergy TAKE 2 TABS BY MOUTH ONE HOUR BEFORE CONTRAST MEDIUM ADMINISTRATION. DO NOT DRIVE FOR 6 HOURS AFTER TAKING. 2 tablet 2024 Active Active Problems Problem Noted Date Diagnosed Date Pituitary abnormality 01/11/2025 Contrast media allergy 01/11/2025 Postoperative hypothyroidism 12/24/2022 Elevated cholesterol 12/24/2022 Pulmonary embolism 07/27/2022 Hypertension 07/27/2022 Thyroid cancer 06/22/2022 Cancer Staging:Pathologic stage from 07/16/2022:Stage II(pT2, pN1b, cM0, Age at diagnosis: >= 55 years) - Signed by Momo Grijalva MD on 12/07/2024 Encounters Date Type Department Care Team Description 01/28/2025 Patient Outreach [facility] ENDOSCOPY [address] [place] [address] Sariah Smith RN 01/11/2025 10:00 AM CDT Office Visit [facility] - Hematology/Oncology [address] [place] [address] Momo Grijalva MD Thyroid cancer (HCC) (Primary Dx); Contrast media allergy; Pituitary abnormality (HCC) 01/11/2025 Travel 01/10/2025 10:26 AM CDT - 01/10/2025 11:59 PM CDT Hospital Encounter [facility] MRI [address] [place] [address] Primitivo Silver MD Discharge Disposition: Home or Self Care 01/10/2025 Travel 12/29/2024 10:15 AM CDT - 12/29/2024 11:59 PM CDT Hospital Encounter [facility] LAB OP DRAW STATION [address] [place] [address] Discharge Disposition: Home or Self Care 12/29/2024 9:00 AM CDT Office Visit [facility] - Endocrinology [address] [facility], [place] [address] Primitivo Silver MD Thyroid cancer (HCC) (Primary Dx); Hypothyroidism, acquired; Hypertension, unspecified type; Elevated cholesterol; Postoperative hypothyroidism 12/29/2024 Travel 12/27/2024 Results Follow-Up [facility] - Hematology/Oncology [address] [place] [address] Momo Grijalva MD 12/07/2024 9:43 AM CDT - 12/07/2024 11:59 PM CDT Hospital Encounter [facility] CANCER CARE DRAWSTATION [address] [facility] [place] [address] Discharge Disposition: Home or Self Care 12/07/2024 8:20 AM CDT Office Visit [facility] - Hematology/Oncology [address] [place] [phone] Primitivo Silver MD Willis, Maurice, MD Thyroid cancer (Primary Dx); Enlarged prostate 12/07/2024 Travel 12/04/2024 Telephone [facility] - Hematology/Oncology [address] [place] [phone] Momo Grijalva MD Appointment (Spoke with pt. regarding an upcoming appointment on SaturdayDecember 07 at 8:20a.m. with Dr. Grijalva.) from Last 3 Months Immunizations Immunization Administration [...] Used Date Smoking Tobacco: Former Cigarettes 2 47.4 S tarted: 1977 Smokeless Tobacco: Never Tobacco [...] on file 03/2022 PHQ-2 Answer Date Recorded Patient Health Questionnaire-2 Score 0 12/29/2024 Sex and Gender Information Value Date Recorded Sex Assigned at Not on file Legal Sex Male 5:22 AM CDT Gender Identity Not on file Sexual Orientation Not on file Last Filed Vital Signs Vital Sign Reading Time Taken Comments Blood Pressure 109/68 01/11/2025 9:58 AM CDT Pulse 76 01/11/2025 9:58 AM CDT Temperature 36.8 C (98.3 F) 01/11/2025 9:58 AM CDT Respiratory Rate 18 01/11/2025 9:58 AM CDT Oxygen Saturation 93% 01/11/2025 9:58 AM CDT Inhaled Oxygen Concentration 50% 07/19/2022 1 :05 AM TRAVELING NURSE Weight 110.5 kg (243 lb 9.6 oz) 01/11/2025 9:58 AM CDT Height 182 cm (5' 11.65) 12/07/2024 8:53 AM CDT Body Mass Index 33.36 12/07/2024 8:53 AM CDT Plan of Treatment Upcoming Encounters Date Type Department Care Team (Late st Contact Info) Description 02/16/2025 9:20 AM CDT Hospital Encounter [facility] CAT SCAN [address] [place] [address] Momo Grijalva MD [address] [place] [address] 02/22/2025 8:40 AM CDT Office Visit [facility] - Hematology/Oncology [address] [place] [phone] Momo Grijalva MD [address] [place] [address] 06/28/2025 10:00 AM CDT Office Visit [facility] - Endocrinology [address] [place] [address], [facility] [place] [phone] Primitivo Silver MD [address] [place] [address] [place] [address] Health Maintenance Due Date Last Done Comments COLOGUARD (AGES 45-75) - COLON CA SCREENING 1964 COLON MONITORING 1964 COLONOSCOPY - COLON CA SCREENING 1964 CT COLONOGRAPHY - COLON CA SCREENING 1964 Colorectal Cancer Screening 1964 FIT - COLON CA SCREENING 1964 FLEX SIG - COLON CA SCREENING 1964 HIV SCREENING 1979 LUNG CANCER SCREENING 2014 ZOSTER VACCINE (2 of 2) 09/21/2022 07/27/2022 Respiratory Syncytial Virus (RSV) Vaccine Pt: or over 60 yrs (1 - Risk 60-74 years 1-dose series) 2024 COVID-19 VACCINE ( - season) 2024 INFLUENZA VACCINE (Season Ended) 2025 SCREENING FOR DIABETES 07/22/2025 , 07/21/2022, 07/21/2022, Additional history exists DTAP/TDAP/TD VACCINES (2 - Td or Tdap) 02/20/2032 02/19/2022 PNEUMOCOCCAL VACCINE 50+ Completed 06/27/2022 HEPATITIS C SCREENING Completed 07/21/2022 DEPRESSION SCREENING Completed 12/29/2024, 12/24/2022, 08/28/2022 HEPATITIS B VACCINE Aged Out No longe [...] this topic Medical Devices Implanted Type Area Installment Dealer Device Identifier Shelf Expiration Date Model / Serial / Lot Seal Tisseel Prima 1 Prefil Frz 10ml Implanted:Qty: 1 on 07/18/2022 by Uziel Hernandez MD at [facility] 01/07/2024 [id number] / / [id number] Procedures Procedure Name Priority Date/Time Associated Diagnosis Comments MRI PITUITARY ONLY WWO CONTR Routine 01/10/2025 11:18 AM CDT Thyroid cancer (HCC) Hypothyroidism, acquired Hypertension, unspecified type Elevated cholesterol THYROGLOBULIN BY SAMSON RFLXED Routine 12/29/2024 11:47 AM CDT Thyroid cancer (HCC) Hypothyroidism, acquired THYROGLOBULIN REFLEX PROFILE Routine 12/29/2024 11:47 AM CDT Thyroid cancer (HCC) Hypothyroidism, acquired TSH Routine 12/29/2024 11:47 AM CDT Thyroid cancer (HCC) Hypothyroidism, acquired NH US SOFT TISS HEAD&NCK R-T IMG Routine 12/29/2024 10:14 AM CDT Thyroid cancer (HCC) Hypothyroidism, acquired THYROGLOBULIN BY SAMSON RFLXED Routine 12/07/2024 9:53 [...] 12/07/2024 9:32 AM CDT Thyroid cancer (HCC) BASIC METABOLIC PANEL (CALCIUM TOTAL) AM Draw 07/22/2022 4:57 AM TRAVELING NURSE HEPATITIS C AB SCREEN RFLX NAAT QUANT Routine 07/21/2022 7:19 AM TRAVELING NURSE from Last 3 Months or Most Recently Relevant to Health Maintenance Results * MRI PITUITARY ONLY WWO CONTR (01/10/2025 11:18 AM CDT) Anatomical Region Laterality Modality Head Magnetic Resonan ce 01/13/2025 4:17 PM CDT Impressions 01/13/2025 4:42 PM CDT IMPRESSION: There is a small 6 x 7 mm T2 hypointense, hypoenhancing lesion along the right lateral aspect of the sella/pituitary gland abutting the right internal carotid artery most likely secondary to pituitary microadenoma. No other intracranial abnormal enhancing lesions noted. > Interpreting Provider: Meka Kimble MD on 01/13/2025 4:42 PM Narrative 01/13/2025 4:42 PM CDT PROCEDURE: MRI PITUITARY ONLY WWO CONTR, DATE/TIME OF EXAM: 01/10/2025 11:19 AM, LOCATION [facility] INDICATION: C73: Thyroid cancer (HCC) E03.9: Hypothyroidism, acquired I10: Hypertension, unspecified type E78.00: Elevated cholesterol ADDITIONAL CLINICAL INFORMATION: Ordering Provider Reason For Exam: ABNORMAL PET/CT SUGGESTING PITUITARY LESION Technologist Note: Additional: COMPARISON: PET/CT 11/09/2024 TECHNIQUE: MRI of the brain was performed prior to and following the uneventful administration of [' intravenous gadolinium contrast according to a dynamic pituitary protocol. CONTRAST: GADOBUTROL 1 MMOL/ML IV SSM SO:10 mL FINDINGS: There is a small T2 hypointense lesion along the right lateral aspect of the sella with deviated enhancement and hypoenhancement on the delayed postcontrast images compared to the rest of the pituitary gland. This lesion measures approximately 6 x 7 mm along the right lateral aspect of sella and abutting the right internal carotid artery along the cavernous segment. (Image 9, series 12 image 9, series 20) This lesion shows corresponding hyper metabolic activity on prior PET/CT. The pituitary gland otherwise appears normal. The infundibular stalk is slightly deviated to the left. The hypothalamus appears normal. The optic chiasm and suprasellar cistern appear normal. Meckel's cave and the cavernous sinuses otherwise appear normal. FLAIR images are limited by motion artifact mild periventricular FLAIR hyperintensities, nonspecific could be seen in the setting of chronic ischemic small vessel disease. Mild generalized parenchymal volume loss. Nondilated appearance of the ventricles. No extra-axial collections noted. No evidence of acute infarction. No other abnormal enhancing lesions noted Procedure Note Meka Kimble MD - 01/13/2025 PROCEDURE: MRI PITUITARY ONLY WWO CONTR, DATE/TIME OF EXAM: 01/10/2025 11:19 AM, LOCATION [facility] INDICATION: C73: Thyroid cancer (HCC) E03.9: Hypothyroidism, acquired I10: Hypertension, unspecified type E78.00: Elevated cholesterol ADDITIONAL CLINICAL INFORMATION: Ordering Provider Reason For Exam: ABNORMAL PET/CT SUGGESTING PITUITARY LESION Technologist Note: Additional: COMPARISON: PET/CT 11/09/2024 TECHNIQUE: MRI of the brain was performed prior to and following the uneventful administration of [' intravenous gadolinium contrast according to adynamic pituitary protocol. CONTRAST: GADOBUTROL 1 MMOL/ML IV SSM SO:10 mL FINDINGS: There is a small T2 hypointense lesion along the right lateral aspect of the sella with deviated enhancement and hypoenhancement on the delayed postcontrast images compared to the rest of the pituitary gland. This lesion measures approximately 6 x 7 mm along the right lateral aspect of sella and abutting the right internal carotid artery along the cavernous segment. (Image 9, series 12 image 9, series 20) This lesion shows corresponding hyper metabolic activity on prior PET/CT. The pituitarygland otherwise appears normal. The infundibular stalk is slightly deviated to the left. The hypothalamus appears normal. The optic chiasm andsuprasellar cistern appear normal. Meckel's cave and the cavernous sinuses otherwise appear normal. FLAIR images are limited by motion artifact mild periventricular FLAIR hyperintensities, nonspecific could be seen in the setting of chronic ischemic small vessel disease. Mild generalized parenchymal volume loss. Nondilated appearance of the ventricles. No extra-axial collectionsnoted. No evidence of acute infarction. No other abnormal enhancing lesionsnoted IMPRESSION: There is a small 6 x 7 mm T2 hypointense, hypoenhancing lesion along the right lateral aspect of the sella/pituitary gland abutting the right internal carotid artery most likely secondary to pituitary microadenoma. No other intracranial abnormal enhancing lesions noted. > Interpreting Provider: Meka Kimble MD on 01/13/2025 4:42 PM us Primitivo Silver MD MR ORDERABLES Final Resul t * THYROGLOBULIN REFLEX PROFILE (12/29/2024 11:47 AM CDT) Only the most recent of2 resultswithin the time period is included. Thyroglobulin Antibody <1.0 0.0 - 0.9 IU/mL 12/30/2024 5:09 PM CDT [facility] ([facility]) Comment: Thyroglobulin Antibody measured by [facility] [place] Methodology It should be noted that the presence of thyroglobulin antibodies may not be pathogenic nor diagnostic, especially at very low levels. The assay documentation clerk has found that four percent of individuals without evidence of thyroid disease or autoimmunity will have positive TgAb levels up to 4 IU/mL. Blood BLOOD SPECIMEN / Unknown Lab Venipuncture / Unknown 12/29/2024 11:47 AM CDT 12/29/2024 11:59 AM CDT Narrative [facility] ([facility]) - 12/30/2024 5:09 PM CDT Performed at: [address] [place] [address] [address] [place], [place] [id number] Space Sciences Director: Tommy Flores PhD, Phone: [phone] us Primitiov Silver MD LAB - CHEMISTRY ORDERABLES Final Result [facility] ([facility]) [address] [place] [address], [facility] * THYROGLOBULIN BY SAMSON RFLXED (12/29/2024 11:47 AM CDT) Only the most recent of2 resultswithin the time period is included. Thyroglobulin by SAMSON 5.2 1.4 - 29.2 ng/mL 12/30/2024 5:09 PM CDT [facility] ([facility]) Comment: According to the National Academy of [...] SPECIMEN / Unknown Lab Venipuncture / Unknown 12/29/2024 11:47 AM CDT 12/29/2024 11:59 AM CDT Narrative [facility] ([facility]) - 12/30/2024 5:09 PM CDT Performed at: [address] [place], [place] [id number] [place], [place] [id number] Space Sciences Director: Tommy Flores PhD, Phone: [phone] Primitivo Silver MD LAB - CHEMISTRY ORDERABLES Final Result Performing Organization Address City/[facility]/ZIP Co de Phone Number [facility]) [address] [place] [address], [facility] * TSH (12/29/2024 11:47 AM CDT) Only the most recent of2 resultswithin the time period is included. Pathologist [facility] TSH 0.659 0.350 - 4.940 uIU/mL 12/29/2024 12:50 PM CDT [facility] Blood BLOOD SPECIMEN / Unknown Lab Venipuncture / Unknown 12/29/2024 11:47 AM CDT 12/29/2024 12:02 PM CDT us Primitivo Silver MD LAB - CHEMISTRY ORDERABLES Final Result [address] [address] [phone] * [place] US SOFT TISS HEAD&NCK R-T IMG (12/29/2024 10:14 AM CDT) Narrative Primitivo Silver MD - 12/29/2024 10:14 AM CDT Primitivo Silver MD 12/29/2024 10:22 AM Ultrasound Of Thyroid Ultrasound of the Thyroid PHYSICIAN Primitivo Silver MD FELLOW NONE Test Date: 12/29/2024 Test Indication: Patient Active Problem List Diagnosis Date Noted Postoperative hypothyroidism 12/24/2022 Priority: Not Prioritized Elevated cholesterol 12/24/2022 Priority: Not Prioritized Pulmonary embolism (HCC) 07/27/2022 Priority: Not Prioritized Hypertension 07/27/2022 Priority: Not Prioritized Thyroid cancer (HCC) 06/22/2022 Priority: Not Prioritized Referring Physician: Dr. Robert GRIJALVA MD Procedure Preformed: Ultrasound Only COMPARED TO : 03/19/2024 Nodule Size: THYROID GLAND SURGICALLY ABSENT LYMPH NODES IDENTIFIED RIGHT NECK LEVEL IIA 0.54 X 0.34 CM WITH HILAR LINE LEFT NECK LEVEL VB 0.58 X 0.33 CM WITH HILAR LINE LEVEL III 0.44 X 0.30 CM RIGHT NECK THYROID BED CYST TRANSVERSE IMAGE: 1.66 X 2.38 CM LONGITUDINAL IMAGE : 2.34 X 2.57 CM Echogenicity: NORMAL NECK Vascularity: NORMAL NECK Number of Nodules Present: SEE ABOVE Calcifications: NONE Borders: N/A ASSESSMENT BENIGN APPEARING LYMPH NODES RIGHT NECK CYST UNCHANGED EUTHYROID CLINICALLY THYROID CANCER WITH METS TO LUNG PROBABLY AND ELEVATED TG Recommendations: PLAN THYROID /NECK ULTRASOUND LAB TODAY TSH AND TG STANDING ORDER FOR LABS EVERY THREE MONTHS MEDICATION LEVOTHYROXINE 175 MCG DAILY NEW PRESCRIPTION TO PHARMACY Instructions for taking levothyroxine Brand name is preferred Take thyroid pill all by itself Take thyroid pill one hour before food or 2 to 3 hours after food Heat, humidity, and direct sunlight will cause a loss of potency Never store thyroid pill in the bathroom RETURN IN SIX MONTHS DIET, EXERCISE AND AVOID WEIGHT GAIN REPEAT PSA IN ONE YEAR MRI OF PITUITARY PENDING EGD AND COLONOSCOPY PENDING FOLLOW UP WITH DR GRIJALVA IN JAN, 2025 CONTINUE LIPITOR NEW PRESCRIPTION TO PHARMACY LOW CHOLESTEROL DIET Primitivo Silver MD Division of Endocrinology us Primitivo Silver MD PROCEDURE/MINOR SURGICAL OR DERABLES Final Result * [facility]OD DRAW (12/07/2024 9:53 AM CDT) Blood Sent to [facility] 12/08/2024 10:00 AM CDT [facility] Comment:Collection and sendo ut completed. Blood BLOOD SPECIMEN / Unknown Lab Venipuncture / Unknown 12/07/2024 9:53 AM CDT 12/08/2024 9:31 AM CDT Momo Grijalva MD LAB - HEMATOLOGY ORDERABLES Fi nal Result Performing Organization Address City/[facility]/ZIP Co de Phone Number [address] [address], [place] [phone] * PSA SERIAL (12/07/2024 9:53 AM CDT) PSA Total 1.6 <4.0 ng/mL 12/07/2024 10:53 AM CDT [facility] Blood BLOOD SPECIMEN / Unknown Lab Venipuncture / Unknown 12/07/2024 9:53 AM CDT 12/07/2024 10:02 AM CDT Narrative [facility] - 12/07/2024 10:53 AM CDT PSA values will vary depending on the testing procedure used. Results are not comparable across different test methods. [facility] uses the Mondragon Alinity immunoassay test method. Momo Grijalva MD LAB - CHEMISTRY ORDERABLES Fin al Result Performing Organization Address City/[facility]/ZIP Co de Phone Number [address] [address], [place] [phone] * [facility] xT DNA And RNA Solid Tumor (12/07/2024 9:32 AM CDT) Reason for Study To identify somatic and germline mutations relevant to patient's cancer. 12/27/2024 2:02 PM CDT [facility] Genetic Diseases Assessed Cancer 12/27/2024 2:02 PM CDT [facility] Description of Ranges of DNA Sequences Examined 648 gene panel 12/27/2024 2:02 PM CDT [facility] Overall Interpretation positive 12/27/2024 2:02 PM CDT [facility] MSI Stable 12/27/2024 2:02 PM CDT [facility] TMB 2.1 m/MB 12/27/2024 2:02 PM CDT [facility] [id number] [email or web address] 12/27/2024 2:02 PM CDT [facility] Comment:[facility] link PD-L1 Interpretation by 22C3 negative 12/27/2024 2:02 PM CDT [facility] PD-L1 (22C3) Combined Positive Score <1 12/27/2024 2:02 PM CDT [facility] PD-L1 (22C3) Tumor Proportion Score <1 % 12/27/2024 2:02 PM CDT [facility] Low Coverage Regions PMS2 12/27/2024 2:02 PM CDT [facility] Therapy Count 3 12/27/2024 2:02 PM CDT [facility]: Potential Therapy 1 Gene: 1097^BRAF^HGNC Variant: p.V600E Match Type: snvIndel Match Type Description: BRAF p.V600E Agent: Dabrafenib + Trametinib Drug Class: Combination (BRAF Inhibitor + MEK Inhibitor) Tissue: Papillary Thyroid Carcinoma Association: Response Evidence Status: Consensus Evidence ID: NCCN KDB Variant: V600E - GOF NCCN Associated Evidence: Consensus, Papillary Thyroid Carcinoma Label: FDA On Label FDA Approved?: Yes On label?: Yes 12/27/2024 2:02 PM CDT [facility]: Potential Therapy 2 Gene: 1097^BRAF^HGNC Variant: p.V600E Match Type: snvIndel Match Type Description: BRAF p.V600E Agent: Dabrafenib Drug Class: BRAF Inhibitor Tissue: Papillary Thyroid Carcinoma Association: Response Evidence Status: Consensus Evidence ID: NCCN KDB Variant: V600E - GOF NCCN Associated Evidence: Consensus, Papillary Thyroid Carcinoma Label: FDA Off Label FDA Approved?: Yes On label?: No 12/27/2024 2:02 PM CDT [facility]: Potential Therapy 3 Gene: 1097^BRAF^HGNC Variant: p.V600E Match Type: snvIndel Match Type Description: BRAF p.V600E Agent: Vemurafenib Drug Class: BRAF V600 Inhibitor Tissue: Papillary Thyroid Carcinoma Association: Response Evidence Status: Consensus Evidence ID: NCCN KDB Variant: V600E - GOF NCCN Associated Evidence: Consensus, Papillary Thyroid Carcinoma Label: FDA Off Label FDA Approved?: Yes On label?: No 12/27/2024 2:02 PM CDT [facility] Trial Count 3 12/27/2024 2:02 PM CDT [facility] Trial 1: Matched criteria Clinical Trial NCT ID: [id number] Clinical Trial Title: A Study to Characterize the Safety, Tolerability, and Preliminary Efficacy of [id number] As Monotherapy and Combination Therapy in Subjects with BRAF V600 Mutant Solid Tumors Clinical Trial URL: [email or web address].gov/ct2/darya [email or web address] Clinical Phase: Phase 1/Phase 2 Clinical Trial Matches: BRAF p.V600E mutation Clinical Trial Distance and Location: [place], [place] 12/27/2024 2:02 PM CDT [facility] Trial 2: Matched criteria Clinical Trial NCT ID: [id number] Clinical Trial Title: A Phase 1/2 Study of DCC-3116 in Patients With CYNDIE/MAPK Pathway Mutant Solid Tumors Clinical Trial URL: [email or web address] rials.gov/ct2/darya [email or web address] Clinical Phase: Phase 1/Phase 2 Clinical Trial Matches: BRAF p.V600E mutation Clinical Trial Distance and Location: [address] [place], [place] 12/27/2024 2:02 PM CDT [facility] Trial 3: Matched criteria Clinical Trial NCT ID: [id number] Clinical Trial Title: TAPUR: Testing the Use of Food and Drug Administration (FDA) Approved Drugs That Target a Specific Abnormality in a Tumor Gene in People With Advanced Stage Cancer Clinical Trial URL: [email or web address]://clinicalt rials.gov/ct2/darya [email or web address] Clinical Phase: Phase 2 Clinical Trial Matches: BRAF p.V600E mutation, AKT1 p.E17K mutation Clinical Trial Distance and Location: [address] [facility] [place] 12/27/2024 2:02 PM CDT [facility] xR Result 1 NEGATIVE Negative - This report is being issued to report the results of gene rearrangement and altered splicing analysis from RNA sequencing. No gene rearrangements nor reportable altered splicing events were identified from RNA sequencing. 12/27/2024 2:02 PM CDT [facility] Germline Variant Note No potential germline variants were found in the limited set of genes on which we report. 12/27/2024 2:02 PM CDT [facility] HLA-A Typing A*01:01,A*24:02 025 2:02 PM CDT [facility] HLA-B Typing B*08:01,B*27:05 025 2:02 PM CDT [facility] HLA-C Typing C*02:02,C*07:01 025 2:02 PM CDT [facility] HLA-A Ambiguous Alleles Yes 12/27/2024 2:02 PM CDT [facility] HLA-B Ambiguous Alleles Yes 12/27/2024 2:02 PM CDT [facility] HLA-C Ambiguous Alleles Yes 12/27/2024 2:02 PM CDT [facility] HLA-A Sample Type Normal Only 2024 2:02 PM CDT [facility] HLA-B Sample Type Normal Only 2024 2:02 PM CDT [facility] HLA-C Sample Type Normal Only 2024 2:02 PM CDT [facility] Tissue 12/07/2024 9:32 AM CDT 12/07/2024 9:32 AM CDT Narrative This result has genomic variants that were not included in this document. us Momo Grijalva MD LAB - GENETIC ORDERABLES Edite d Result - Final [facility] [address] [facility] [address], [address] [place] [address], [facility] [phone] * [facility] xF: xF+ Liquid Biopsy - 523 Genes (12/07/2024 9:32 AM CDT) Reason for Study To identify mutations relevant to patient's cancer. 12/16/2024 1:06 PM CDT [facility] Genetic Diseases Assessed Cancer 12/16/2024 1:06 PM CDT [facility] Description of Ranges of DNA Sequences Examined 523 gene liquid biopsy 12/16/2024 1:06 PM CDT [facility] Overall Interpretation inconclusive 12/16/2024 1:06 PM CDT [facility] [email or web address] [email or web address] [id number] 12/16/2024 1:06 PM CDT [facility] Comment:[facility] link Low Coverage Regions CARM1, CUL4A, DNMT1, FANCC, MAPK1, NOTCH1, NOTCH2, PHLPP2, PIK3R2, PTPRT, RAD51C, RHOA, RXRA, SDHAF2, TCF7L2, TGFBR1, TP53, TP63 12/16/2024 1:06 PM CDT [facility] Tumor Mutational Mohawk 3.8 m/MB 12/16/2024 1:06 PM CDT [facility] [...] MD LAB - GENETIC ORDERABLES Final Result [facility] [address], [address] [place] [address], [facility] [phone] * [facility] x[facility] Normal Blood (12/07/2024 9:32 AM CDT) [facility] 12/07/2024 11:01 PM CDT [facility] Comment:See NGS Report for R esults. Blood 12/07/2024 9:32 AM CDT 12/07/2024 9:32 AM CDT Momo Grijalva MD LAB - GENETIC ORDERABLES Final Result [facility] [address], [address] [phone] * (ABNORMAL) BASIC METABOLIC PANEL (CALCIUM TOTAL) (07/22/2022 4:57 AM TRAVELING NURSE) Pathologist [facility] BUN 21 7 - 26 mg/dL 07/22/2022 6:25 AM [facility] Creatinine 1.16 0.71 - 1.16 mg/dL 07/22/2022 6:25 AM [facility] Sodium 138 136 - 145 mmol/L 07/22/2022 6:25 AM [facility] Potassium 4.7(H) 3.5 - 4.5 mmol/L 07/22/2022 6:25 AM [facility] Chloride 100 98 - 107 mmol/L 07/22/2022 6:25 AM [facility] CO2 32(H) 22 - 29 mmol/L 07/22/2022 6:25 AM [facility] Glucose 114 70 - 115 mg/dL 07/22/2022 6:25 AM [facility] Calcium 9.2 8.4 - 10.2 mg/dL 07/22/2022 6:25 AM [facility] Anion Gap 11 8 - 18 07/22/2022 6:25 AM [facility] BUN/Creatinine Ratio 18 7 - 23 07/22/2022 6:25 AM [facility] Osmolality Calculated 290 270 - 300 mOsm/kg 07/22/2022 6:25 AM [facility] eGFR by CKD-EPI 73(L) >=90 mL/min/1.7 3 m2 07/22/2022 6:25 AM [facility] Blood BLOOD SPECIMEN / Unknown Lab Venipuncture / Unknown 07/22/2022 4:57 AM TRAVELING NURSE 07/22/2022 5:58 AM TRAVELING NURSE Uziel Hernandez MD LAB - CHEMISTRY ORDERABLES Fi nal Result Performing Organization Address [facility] Co de Phone Number [address] [address], [place] [phone] * HEPATITIS C AB SCREEN RFLX NAAT QUANT (07/21/2022 7:19 AM TRAVELING NURSE) Hepatitis C Antibody Non-react karen Non-reac tive 07/21/2022 9:13 AM TRAVELING NURSE [facility] Comment:Hepatitis C Antibody screen indicates no serologic evidence of past or current infection with Hepatitis C Virus. Patients with unexplained liver disease who are immunocompromised or suspected of having acute Hepatitis C infection may benefit from Nucleic Acid Test (STALIN) for Hepatitis C Viral RNA to confirm Hepatitis C status. Blood BLOOD SPECIMEN / Unknown Lab Venipuncture / Unknown 07/21/2022 7:19 AM TRAVELING NURSE 07/21/2022 7:29 AM TRAVELING NURSE Holly Lassiter MD LAB - CHEMISTRY ORDERABLES Maryann l Result Performing Organization Address [facility] Co de Phone Number [address] [address], [facility] [phone] from Last 3 Months or Most Recently Relevant to Health Maintenance Insurance MARCIA ANTHEM Advance Directives * Full Code (Latest Code Status on File) Date Activated Date Inactivated Comments 07/16/2022 1:04 PM 07/22/2022 4:24 PM * Full Code Date Activated Date Inactivated Comments 07/16/2022 6:41 AM 07/16/2022 1:04 PM Care Teams Structural Steel Trades Worker Relationship Specialty Start Date End Date Robert Gonzalez PCP - General 09/12/23
--- OUTSIDE RECORDS SUMMARY | 2025-02-15 02:27 | XMS_ITS | Clinical Summary ---
Author Organization [facility] Address [address] [place] [address] Care Team Providers Care Crabbing Machine Operator Name Role Phone Robert Gonzalez MD Primary Care Provider [phone] Allergies Active Allergy Reactions Criticality Noted Date [...] Comments Blood Pressure 116/68 08/15/2022 8:21 AM ASSISTANT PURCHASING MANAGER Pulse 65 08/15/2022 8:21 AM ASSISTANT PURCHASING MANAGER Temperature 36.6 C (97.8 F) 08/15/2022 8:21 AM ASSISTANT PURCHASING MANAGER Respiratory Rate 16 08/15/2022 8:21 AM ASSISTANT PURCHASING MANAGER Oxygen Saturation 92% 08/15/2022 8:21 AM ASSISTANT PURCHASING MANAGER Inhaled Oxygen Concentration - - Weight 115.2 kg (254 lb) 08/15/2022 8:21 AM ASSISTANT PURCHASING MANAGER Height 185.4 cm (6' 1) 06/14/2022 10:25 AM CDT Body Mass Index [...] to complete this topic Insurance Care Teams Crabbing Machine Operator Relationship Specialty Start Date End Date Robert Gonzalez MD PCP - General Family Practice 06/14/22
--- OUTSIDE RECORDS SUMMARY | 2025-02-15 02:27 | XMS_ITS | Encounter Summary ---
Author Organization [facility] Address [address] [place] [address] Care Team Providers Care Lagging Machine Operator Name Role Phone Robert Gonzalez Primary Care Provider Unavailabl e Encounter Details Date Type Department Care Team (Late st Contact Info) Description 12/27/2024 Results Follow-Up [facility] - Hematology/Oncology [address] [place] [id number] Moom Grijalva MD [address] [place] [address] Social History Tobacco Use Types Packs/Day Years Used Date Smoking Tobacco: Former Cigarettes 2 47.4 S tarted: 1978 Smokeless Tobacco: Never Comments:Quit 07/16/22 Alcohol Use Standard Drinks/Week Comments [...] on file Sexual Orientation Not on file documented as of this encounter Functional Status * Is person deaf or have serious hearing difficulty? Answer Date of Assessment Author No 07/16/2022 5:36 PM Rashida Redd RN * Is person blind or have serious difficulty seeing? Answer Date of Assessment Author No 07/16/2022 5:36 PM Rashida Redd RN * Does person have serious difficulty walking/climbing stairs? Answer Date of Assessment Author No 07/16/2022 5:36 PM Rashida Redd RN * Does person have difficulty dressing/bathing? Answer Date of Assessment Author No 07/16/2022 5:36 PM Rashida Redd RN * Does person have difficulty doing errands alone? Answer Date of Assessment Author No 07/16/2022 5:36 PM Rashida Redd RN * Over the past 2 weeks, how often have you been bothered by any of the following problems? Question Answer Date of Assessment Author Little interest or pleasure in doing things Not at all 12/29/2024 9:11 AM Ivana Canas M A Feeling down, depressed, or hopeless Not at all 12/29/2024 9:11 AM Ivana Canas M A Patient Health Questionnaire -2 Score 0 12/29/2024 9:11 AM Ivana Canas M A documented as of this encounter Mental Status * Does person have difficulty concentrating/remembering/making decisions? Answer Entry Date Author No 07/16/2022 5:36 PM Rashida Redd RN documented in this encounter Plan of Treatment Upcoming Encounters Date Type Department Care Team (Late st Contact Info) Description 02/16/2025 9:20 AM CDT Hospital Encounter [facility] CAT SCAN [address] [place] [address] Momo Grijalva MD [address] [place] [address] 02/22/2025 8:40 AM CDT Office Visit [facility] - Hematology/Oncology [address] [place] [phone] Momo Grijalva MD [address] [place] [address] 06/28/2025 10:00 AM CDT Office Visit [facility] - Endocrinology [facility] [facility], [place] [address] Primitivo Silver MD [address] [place] [address] [place] [address] documented as of this encounter Visit Diagnoses Not on filedocumented in this encounter Care Teams Lagging Machine Operator Relationship Specialty Start Date End Date Robert Gonzalez PCP - General 09/12/23 documented as of this encounter
[2025-02-15 11:46] VITALS: BP 115/56; PULSE 79; RESP 20; TEMP 37.1; O2SAT 98; BMI 31.5
[2025-02-15] MEDS: LACTATED RINGERS 1,000 ML 150 ML IV CONT (11:53)
--- NOTE | 2025-02-15 12:06 | WPDANESEPPF ---
Anes - Initial Pre Proc Eval Procedure: Operation Date: 02/15/25 13:00 Proposed Procedures p Screening Colonoscopy - Basil Orantes MD Date/Time: 02/15/25 12:06 Surgeon: Basil Orantes MD Pre Op Diagnosis: Encounter for screening for malignant neoplasm of Patient Data Age: 59 Gender: M Height: 1.85 m Weight: 108.3 kg Last Vital Signs Temp 37.1 C 02/15/25 11:46 Pulse 79 02/15/25 11:46 Resp 20 02/15/25 11:46 BP 115/56 L 02/15/25 11:46 Pulse Ox 98 02/15/25 11:46 O2 Del Method Room Air 02/15/25 11:46 Allergies Allergy/AdvReac Type Severity Reaction Status Date / Time iodine Allergy Unknown hives Verified 02/15/25 11:44 Home Medications ?Medication ?Instructions ?Recorded ?Confirmed ?Type atorvastatin 40 mg tablet 40 mg PO DAILY 08/24/22 02/15/25 History rivaroxaban 20 mg tablet (Xarelto) 20 mg PO QPM #90 tabs 11/05/24 02/15/25 Rx lisinopril 10 mg tablet See Rx Instructions .Route 11/11/24 02/15/25 Rx .COMPLEX #90 tabs albuterol sulfate 90 mcg/actuation 2 puff inhalation Q6-8H PRN 01/25/25 02/02/25 Rx aerosol inhaler shortness of breath or wheezing #8.5 grams levothyroxine 175 mcg tablet 175 mcg PO DAILY 02/02/25 02/15/25 History Patient hx anesthesia problems: none Family hx anesthesia problems: none Results Review: All pre-operative results and documents have been reviewed as part of the pre-operative evaluation. [facility] Past Medical History Medical History Personal history of tobacco use Mixed hyperlipidemia Lipoprotein deficiency Essential (primary) hypertension Adjustment disorder with depressed mood History of DVT (deep vein thrombosis) History of pulmonary embolism Acquired hypothyroidism S/p thyrodectomy in July 2022 Papillary thyroid carcinoma Surgical History Surgical History History of laryngoscopy 06/30 [facility] Family History Family History Mother Diabetes mellitus Hypertension Lung cancer Father Hypertension Grandparent Diabetes mellitus Grandparent Diabetes mellitus Hypertension Social History Social History Social History: Caffeine-soda Smoking packs per day: 1 Smoking cigarettes per day: 20.0 Years smoked: 44 Smoking pack-years: 44.00 Smoking status: Current some day smoker Alcohol intake: current Drinks per week: 66 Alcohol use details: Beer Substance use: never Substance use type: does not use Do You Feel Safe in your Home?: Yes Lack of Transportation: No Lack of Food: Never True Current Housing: I Have Housing Concerned About Future Housing: No Difficulty Paying Gas/Electric Bills: No Difficulty Paying for Meds: No Currently Unemployed: No Education: Trade/Vocational Certificate Difficulty w/ Childcare or Family Care: No Occupation/Education: occupation Gender identity (if verbalized by the patient): Male Anes - Eval Final PreProcedure Day of Procedure 02/15/25 12:06 Patient weight: obese Heart: regular rate and rhythm Lungs: decreased breath sounds Airway: Mallampati scale class II Neurological: alert and oriented Last oral intake: >/= 8 hours ASA classification: IV Emergent: no Anesthetic plan: proceed Anesthesia type and monitoring: general GIVS and standard monitoring Results Review: All pre-operative results and documents have been reviewed as part of the pre-operative evaluation. Informed Consent: The patient's anesthetic plan and its attendant risks and benefits were discussed with the patient/family/POA. Questions were solicited and answers provided to the satisfaction of the patient/family/POA.
--- NOTE | 2025-02-15 12:06 | PM.HPGS ---
History of Present Illness History of Present Illness Consent: Risks, benefits, and alternatives have been discussed and questions answered. Patient agrees to proceed with procedure. Chief complaint: Encounter for screening for malignant neoplasm of Narrative: Benton Trimble is a 59 year old male here for first screening colonoscopy Review of Systems Review of Systems: All systems reviewed & are unremarkable except as noted in HPI and below PMFSH Past Medical History Medical History Personal history of tobacco use Mixed hyperlipidemia Lipoprotein deficiency Essential (primary) hypertension Adjustment disorder with depressed mood History of DVT (deep vein thrombosis) History of pulmonary embolism Acquired hypothyroidism S/p thyrodectomy in July 2022 Papillary thyroid carcinoma Surgical History Surgical History History of l[facility]oscopy 06/30 [facility] Family History Family History Mother Diabetes mellitus Hypertension Lung cancer Father Hypertension Grandparent Diabetes mellitus Grandparent Diabetes mellitus Hypertension Social History Social History Social History: Caffeine-soda Smoking packs per day: 1 Smoking cigarettes per day: 20.0 Years smoked: 44 Smoking pack-years: 44.00 Smoking status: Current some day smoker Alcohol intake: current Drinks per week: 66 Alcohol use details: Beer Substance use: never Substance use type: does not use Do You Feel Safe in your Home?: Yes Lack of Transportation: No Lack of Food: Never True Current Housing: I Have Housing Concerned About Future Housing: No Difficulty Paying Gas/Electric Bills: No Difficulty Paying for Meds: No Currently Unemployed: No Education: Trade/Vocational Certificate Difficulty w/ Childcare or Family Care: No Occupation/Education: occupation Gender identity (if verbalized by the patient): Male Meds Home Medications and Allergies Home Medications ?Medication ?Instructions ?Recorded ?Confirmed ?Type atorvastatin 40 mg tablet 40 mg PO DAILY 08/24/22 02/15/25 History rivaroxaban 20 mg tablet (Xarelto) 20 mg PO QPM #90 tabs 11/05/24 02/15/25 Rx lisinopril 10 mg tablet See Rx Instructions .Route 11/11/24 02/15/25 Rx .COMPLEX #90 tabs albuterol sulfate 90 mcg/actuation 2 puff inhalation Q6-8H PRN 01/25/25 02/02/25 Rx aerosol inhaler shortness of breath or wheezing #8.5 grams levothyroxine 175 mcg tablet 175 mcg PO DAILY 02/02/25 02/15/25 History Allergies Allergy/AdvReac Type Severity Reaction Status Date / Time iodine Allergy Unknown hives Verified 02/15/25 11:44 Vital Signs Vital Signs - 24 hr 02/15/25 11:46 Temperature 98.7 F Pulse Rate 79 Respiratory Rate 20 Blood Pressure 115/56 L Pulse Oximetry 98 Oxygen Delivery Room Air Exam Const: General: comfortable and no acute distress HENMT: Face/Nose/Sinus: Normal nares present Eyes: General: appearance normal, both eyes and all related structures Neck: Neck: no JVD Resp: Auscultation: clear to auscultation bilaterally Cardio: Rate: regular rate Rhythm: regular rhythm GI: Inspection: non-distended GI Palp: Yes Soft to palpation Skin: General skin exam: normal color Neuro: General: gait normal Speech: normal speech Extrem: General: normal to inspection Psych: Mental Status: mental status grossly normal Assessment and Plan Assessment and plan (1) Screening for colon cancer: Code(s): Z12.11 - Encounter for screening for malignant neoplasm of colon Status: Acute Assessment and Plan: colonoscopy
--- NOTE | 2025-02-15 12:49 | S_PTH ---
PATIENT: Benton Trimble LOC: [facility]#:[id number] AGE/SX: 59/M ROOM: RE02/15/[address]: Basil Orantes MD : 1965 BED: DIS: 02/15/2025 SPEC #: [id number] RECD: 02/15/25 14:22 STATUS: LACY REMarcelino #: [id number] JAIME: 02/15/25 12:[address]: Basil Orantes DEPT: [facility] Surgical RECD BY: Dolores Sofia ENTERED: 02/15/25 14:23 SP TYPE: Surgical OTHR DR: Marizol Dejesus, ALANA Tissues: A - Colon Polypectomy B - Colon Polypectomy C - Colon Polypectomy Procedures: Hematoxylin and Eosin Stain Gross and Microscopic Level 4
[2025-02-15 12:52] VITALS: BP 77/44; PULSE 75; RESP 18; O2SAT 89
[2025-02-15 13:02] VITALS: BP 105/58; PULSE 77; RESP 20; O2SAT 94
[2025-02-15 13:12] VITALS: BP 110/63; PULSE 76; RESP 13; O2SAT 96
== END 2025-02-15 13:34 | disposition home or self-care (01) ==
PROVIDERS: PCP Nurse Practitioner Family; Referring Provider Nurse Practitioner Family; Visit Provider Internal Medicine Gastroenterology
PROC: 0DJD8ZZ Inspection of Lower Intestinal Tract, Via Natural or Artificial Opening Endoscopic (ICD-10-PCS; CPT 45378; principal; 2025-02-15 13:00)
DX: Z12.11 Encounter for screening for malignant neoplasm of colon (principal); D12.3 Benign neoplasm of transverse colon; D12.4 Benign neoplasm of descending colon; D12.5 Benign neoplasm of sigmoid colon; K64.8 Other hemorrhoids; F17.210 Nicotine dependence, cigarettes, uncomplicated; E66.9 Obesity, unspecified; Z68.31 Body mass index [BMI] 31.0-31.9, adult
CPT/HCPCS: 45385; 45381; 88305; J2704; J7120